=== PATIENT | female | born 1940 | race Caucasian/White ===

== ENCOUNTER → 2018-04-03 12:38 | Outpatient (CLI) | payer MEDICARE, SELFPAY | PROVIDERS: Family Provider Internal Medicine; PCP Internal Medicine; Visit Provider Internal Medicine | DX: R06.09 Other forms of dyspnea (principal); I10 Essential (primary) hypertension; R00.2 Palpitations | CPT/HCPCS: 93306 ==

== ENCOUNTER → 2018-04-21 11:12 | Outpatient (CLI) | payer MEDICARE, SELFPAY ==
[2018-04-21 11:42] VITALS: PULSE 84
== END ==
PROVIDERS: Family Provider Internal Medicine; PCP Internal Medicine; Visit Provider Internal Medicine
DX: R06.02 Shortness of breath (principal)
CPT/HCPCS: 94060; 94640

== ENCOUNTER → 2018-11-07 10:12 | Outpatient (POV) | payer MEDICARE, SELFPAY ==
--- NOTE | 2018-11-07 12:01 | XR_ITS ---
XR chest 2V HISTORY: ITS.REASON: HTN,DYSPNEA ORDERING PHYSICIAN: Julio Mina MD PATIENT AGE: 78 years COMPARISON: 04/14/2015 FINDINGS: The cardiomediastinal silhouette and pulmonary vascularity are within normal limits. The lungs are clear without infiltrates, suspicious nodules, or pleural effusions. Atelectatic or fibrotic changes are present over the anterior clear space inferiorly No acute bony abnormalities. Dense calcification noted in the spleen as seen on a previous CT of 06/16/2015 IMPRESSION: No change with no acute finding
[2018-11-07 12:31] LABS: Basophils % 0.5 % (0.1-2.0); Eosinophils # 0.1 K/mm3 (0.0-0.4); Eosinophils % 0.7 % (0.1-12.0); Hematocrit 40.8 % (37.0-47.0); Hemoglobin 13.3 g/dL (12.2-16.2); Lymphocytes # 1.5 K/mm3 (0.7-4.5); Lymphocytes % 22.5 % (10-50); Mean Corpuscular HGB Conc 32.6 g/dL (31.8-35.4); Mean Corpuscular Hemoglobin 28.1 pg (27.0-31.2); Mean Corpuscular Volume 86.3 fl (81-99); Monocytes # 0.3 K/mm3 (0.1-1.0); Monocytes % 4.1 % (1.7-9.3); Neutrophils # 4.9 K/mm3 (1.8-7.8); Neutrophils % 72.3 % (37.0-80.0); Platelet Count 133 K/mm3 (142-424); Red Blood Count 4.73 M/mm3 (4.20-5.40); Red Cell Distribution Width 13.5 % (11.5-17.5); White Blood Count 6.8 K/mm3 (4.8-10.8)
[2018-11-10 13:14] LABS: Immunoglobulin E, Total <2 IU/mL (0-100)
[2018-11-10 18:04] LABS: M003-IgE Aspergillus fumigatus <0.10 kU/L (Class 0)
== END ==
PROVIDERS: PCP Internal Medicine; Visit Provider Internal Medicine
DX: R06.09 Other forms of dyspnea (principal); I10 Essential (primary) hypertension; R06.2 Wheezing
CPT/HCPCS: 36415; 71046; 82785; 85025; 86003

== ENCOUNTER → 2018-11-16 10:43 | Outpatient (CLI) | payer MEDICARE, SELFPAY ==
--- NOTE | 2018-11-16 10:46 | MM_ITS ---
MM Dig screening mamm BI w/CAD CAD Screening COMPARISON: Digital mammograms with CAD 08/16/2016 and 10/07/2017 INDICATION: There has been a previous lumpectomy left breast for malignancy TECHNIQUE: Standard CC and MLO images were obtained. R2 CAD reviewed. FINDINGS: The left breast is somewhat smaller than the right breast however there is very minimal post lumpectomy scarring noted. There are a few benign-appearing microcalcifications left breast. There is no suspicious lesion in either breast and there are no suspicious microcalcifications. IMPRESSION: Minimal post lumpectomy scarring left breast with no suspicious lesion seen BI-RADS Category: 2 Benign Finding(s) RECOMMENDED FOLLOW-UP: 1YR - 1 YEAR FOLLOW-UP (A letter has been sent to the patient regarding results of the study.)
== END ==
PROVIDERS: PCP Internal Medicine; Visit Provider Internal Medicine
DX: Z12.31 Encounter for screening mammogram for malignant neoplasm of breast (principal)
CPT/HCPCS: 77067

== ENCOUNTER → 2018-11-17 10:34 | Outpatient (CLI) | payer MEDICARE, SELFPAY ==
[2018-11-17 11:26] VITALS: PULSE 71
== END ==
PROVIDERS: PCP Internal Medicine; Visit Provider Internal Medicine
DX: R06.09 Other forms of dyspnea (principal)
CPT/HCPCS: 94060; 94618; 94640; 94726; 94729

== ENCOUNTER 2018-11-29 14:07 | Outpatient (RCR) | payer MEDICARE, SELFPAY | END 2019-01-24 08:56 | disposition home or self-care (01) | LOC: PT 14:07 | PROVIDERS: Visit Provider Internal Medicine | DX: J45.909 Unspecified asthma, uncomplicated (principal) | CPT/HCPCS: G0237; G0238; G0239 ==

== ENCOUNTER → 2019-02-06 14:51 | Outpatient (POV) | payer MEDICARE, SELFPAY | PROVIDERS: Visit Provider Internal Medicine | DX: Z00.00 Encounter for general adult medical examination without abnormal findings (principal) ==

== ENCOUNTER → 2020-02-01 10:05 | Outpatient (CLI) | payer MEDICARE, SELFPAY ==
--- NOTE | 2020-02-01 10:09 | MM_ITS ---
PROCEDURE: MM DIG SCREENING MAMM BI W/CAD Digital Breast Tomosynthesis Included CLINICAL INDICATION: SCREENING There is no personal or family history of breast cancer. There has been a previous lumpectomy left breast for malignancy COMPARISON: [facility] DIG MAMM-SCREEN [facility] from 08/16/2016 [facility] DIG MAMM-SCREEN [facility] W/CAD from 10/07/2017 [facility] MM Dig screening mamm BI w/CAD from 11/16/2018 TECHNIQUE: Standard CC and MLO images and 3D Tomosynthesis was obtained. R2 CAD reviewed. FINDINGS: Moderate diffuse fibroglandular densities are seen in both breasts. The left breast is smaller than the right and there is mild postlumpectomy scarring lower outer quadrant. There is faint arterial calcification right breast and there are couple of benign-appearing microcalcifications left breast. There is a mole marker right breast. IMPRESSION: Stable exam with no new or suspicious lesion seen in either breast BI-RAD Category: 2 Benign Finding(s) FOLLOW-UP: 1YR 1 Year Follow-up (A letter has been sent to the patient regarding results of the study.) Dictated by: Dr. Philip Leone MD 02/01/2020 12:[address] Philip Leone MD in [place] 02/01/2020 12:48
== END ==
PROVIDERS: PCP Internal Medicine; Visit Provider Internal Medicine
DX: Z12.31 Encounter for screening mammogram for malignant neoplasm of breast (principal)
CPT/HCPCS: 77063; 77067

== ENCOUNTER → 2020-11-21 13:30 | Outpatient (CLI) | payer MEDICARE, SELFPAY ==
--- NOTE | 2020-11-21 13:38 | MM_ITS ---
PROCEDURE: MM DIG MAMM DX UNILAT LT CAD Digital Breast Tomosynthesis Included CLINICAL INDICATION: LT BREAST PAIN,H/O LUMPECTOMY COMPARISON: MG MM DIG SCREENING MAMM BI W/CAD from 02/01/2020 TECHNIQUE: Standard CC and MLO images and 3D Tomosynthesis was obtained. R2 CAD reviewed. FINDINGS: Diffuse fibroglandular densities are seen in the breast. I see no interval change in the breast parenchyma from the previous study 02/01/2020. There are few benign-appearing microcalcifications noted. There is faint arterial calcification noted as well. There is only minimal postlumpectomy scarring noted which is stable. Review of benny images reveals no suspicious abnormality though postlumpectomy scarring is better demonstrated. IMPRESSION: Stable fibrofatty parenchyma with no suspicious lesions seen, recommend patient return to normal yearly screening schedule BI-RAD Category: 2 Benign Finding(s) FOLLOW-UP: 6M 6Month Follow-up to return to normal screening schedule (A letter has been sent to the patient regarding results of the study.) Dictated by: Dr. Philip Leone MD 11/30/2020 09:10 Dr. Philip Leone MD in [place] 11/30/2020 09:10
== END ==
PROVIDERS: PCP Internal Medicine; Visit Provider Internal Medicine
DX: N64.4 Mastodynia (principal)
CPT/HCPCS: 77061; 77065; G0279

== ENCOUNTER → 2021-05-06 09:43 | Outpatient (CLI) | payer MEDICARE, SELFPAY ==
--- NOTE | 2021-05-06 | ECG_ITS ---
APPROVED REPORT Exam: Resting ECG HR:92 bpm ECG Measurements Heart Rate 92 AXES QRSd 70 QRS 25 QT 344 T 29 QTc 425 Conclusion Atrial fibrillation Poor R Wave Progression Abnormal ECG Electronically signed by : Aristeo Hoyt, 05/08/2021 16:06:36
== END ==
PROVIDERS: PCP Internal Medicine; Visit Provider Internal Medicine
DX: I49.9 Cardiac arrhythmia, unspecified (principal); I10 Essential (primary) hypertension
CPT/HCPCS: 93005

== ENCOUNTER → 2021-05-25 13:37 | Outpatient (CLI) | payer MEDICARE, SELFPAY ==
--- NOTE | 2021-05-25 13:39 | MM_ITS ---
PROCEDURE: MM DIG SCREENING MAMM BI W/CAD Digital Breast Tomosynthesis Included CLINICAL INDICATION: 6 MON FOLLOW UP to return to screening COMPARISON: MG [facility] DIG MAMM-SCREEN [facility] from 08/16/2016 MG [facility] DIG MAMM-SCREEN [facility] W/CAD from 10/07/2017 MG [facility] MM Dig screening mamm BI w/CAD from 11/16/2018 MG MM DIG SCREENING MAMM BI W/CAD from 02/01/2020 MG MM DIG MAMM DX UNILAT LT CAD from 11/21/2020 TECHNIQUE: Standard CC and MLO images and 3D Tomosynthesis was obtained. R2 CAD reviewed. FINDINGS: There is average fibroglandular tissue. On the right there is an asymmetric density in the the medial aspect of the right breast measuring approximately 5 mm with a small focus of calcification. Of the right breast. Benign-appearing calcifications are present bilaterally. There is some asymmetry in the inferior aspect of the left breast. Left breast is smaller than the right with overall slight increase interstitial densities of the left breast. No malignant appearing mass or malignant-appearing microcalcification. IMPRESSION: Benign findings. No change BI-RAD Category: 2 Benign Finding FOLLOW-UP: 1 YR 1 Year Follow-up (A letter has been sent to the patient regarding results of the study.) Dictated by: Christiano Penny MD 05/29/2021 11:53 Christiano Penny MD in [place] 05/29/2021 11:53
== END ==
PROVIDERS: PCP Internal Medicine; Visit Provider Internal Medicine
DX: Z12.31 Encounter for screening mammogram for malignant neoplasm of breast (principal)
CPT/HCPCS: 77063; 77067

== ENCOUNTER → 2021-10-29 16:30 | Outpatient (CLI) | payer MEDICARE, SELFPAY | PROVIDERS: Visit Provider Obstetrics & Gynecology | DX: R31.9 Hematuria, unspecified (principal) | CPT/HCPCS: 87086 ==

== ENCOUNTER → 2022-03-08 08:15 | Outpatient (CLI) | payer MEDICARE, SELFPAY ==
--- NOTE | 2022-03-08 | CT_ITS ---
FINAL REPORT CLINICAL HISTORY: gross hematuria FINDINGS: Axial CT images of the abdomen and pelvis were obtained without intravenous contrast. Coronal reformatted images were also obtained.This study was performed with techniques to keep radiation doses as low as reasonably achievable (ALARA). Individualized dose reduction techniques using automated exposure control or adjustment of mA and/or kV according to the patient's size were employed. Abdomen: The lung bases are clear. There are probable, less than 3 mm bilateral upper pole renal stones which are best seen on the coronals. There is a 1.5 cm low-attenuation mass in the upper pole of the left kidney. This cannot be completely characterized without contrast. There is no hydronephrosis. The liver and pancreas have an unremarkable, unenhanced appearance. The patient is status post cholecystectomy. There are multiple splenic calcifications. There are moderate vascular calcifications.No adenopathy is seen. No inflammatory process is identified. Pelvis: Images of the pelvis reveal no evidence of ureteral dilation or ureteral stone.No mass or abnormal fluid collection is identified. The appendix is normal. There are scattered descending and sigmoid diverticula. IMPRESSION: 1.5 cm low-attenuation mass upper pole left kidney. Consider renal mass protocol CT. Probable less than 3 mm bilateral upper pole renal stones. No hydronephrosis. No ureteral stone. Reviewed, Interpreted and Dictated by Luca Williamson III, MD Transcribed by David Neville Authenticated by Luca Williamson III, MD on 03/08/2022 09:22:15 AM [facility]
== END ==
PROVIDERS: PCP Internal Medicine; Visit Provider Internal Medicine
DX: R31.0 Gross hematuria (principal)
CPT/HCPCS: 74176

== ENCOUNTER → 2022-03-11 08:33 | Outpatient (CLI) | payer MEDICARE, SELFPAY ==
[2022-03-11 10:29] LABS: Blood Urea Nitrogen 21 mg/dl (7-17); Estimated Glomerular Filt Rate 48 ml/min (>60); GFR (African American) 58 ML/MIN (>60)
== END ==
PROVIDERS: PCP Internal Medicine; Visit Provider Internal Medicine
DX: Z01.812 Encounter for preprocedural laboratory examination (principal); N28.89 Other specified disorders of kidney and ureter
CPT/HCPCS: 36415; 82565; 84520

== ENCOUNTER → 2022-03-12 10:14 | Outpatient (CLI) | payer MEDICARE, SELFPAY ==
--- NOTE | 2022-03-12 10:24 | CT_ITS ---
FINAL REPORT TECHNIQUE: Axial CT images of the abdomen were obtained with IV contrast only. Coronal reformatted images were also obtained. This study was performed with techniques to keep radiation doses as low as reasonably achievable (ALARA). Individualized dose reduction techniques using automated exposure control or adjustment of mA and/or kV according to the patient''s size were employed. CLINICAL HISTORY: RENAL MASS PROTOCOL, poss mass left kidney 10min delay COMPARISON: March 08, 2022 FINDINGS: The lung bases are clear. The liver has an unremarkable appearance, without evidence of mass. There is been cholecystectomy. There is mild biliary duct dilatation likely post cholecystectomy change. The pancreas appears normal. There is a partially peripheral calcified splenic mass measuring 19 mm that is nonspecific and favored to be benign. There is mild renal scarring. There is a 13 mm mass in the upper pole of the left kidney consistent with a simple cyst. There is no evidence of adenopathy. There is mild vascular calcification. On the inferior-most images there is inflammatory change adjacent to the distal descending colon most worrisome for proximal sigmoid diverticulitis. IMPRESSION: Findings most worrisome for proximal sigmoid colon diverticulitis. Simple cyst in the upper pole of the left kidney. No follow-up required. Nonspecific peripherally calcified splenic mass is favored to be benign. Reviewed, Interpreted and Dictated by Luca Williamson III, MD Transcribed by David Neville Authenticated by Luca Williamson III, MD on 03/12/2022 11:54:17 AM [facility]
== END ==
PROVIDERS: PCP Internal Medicine; Visit Provider Internal Medicine
DX: N28.89 Other specified disorders of kidney and ureter (principal)
CPT/HCPCS: 74160; Q9967

== ENCOUNTER 2022-03-22 22:16 | Emergency (ER) | payer MEDICARE, SELFPAY ==
[2022-03-22 22:17] VITALS: BP 193/101; PULSE 107; RESP 20; TEMP 36.7; O2SAT 98; BMI 39.2
--- NOTE | 2022-03-22 22:45 | PC.NURSE ---
Pt is standing up in room after being advised to sit in bed to prevent falling
--- NOTE | 2022-03-22 23:42 | HMH.EDGENADL ---
ED Disposition Clinical Impression: Lumbar radicular pain Disposition: Home, Self-Care Condition on Discharge: Good Instructions: DI for Lumbar Radiculopathy Additional Instructions: call pcp in am Referrals: Aristeo Hoyt MD [Primary Care Provider] - - Critical Care Critical Care Time: No Attestation: On 03/22/22, the high probability of a clinically significant, sudden or life threatening deterioration of the following system(s) required my full and direct attention, intervention and personal management. The time I documented below is in addition to time spent performing reported procedures but includes the following listed in this critical care notation. Medical Decision Making - Medical Records Medical records reviewed: Yes: I reviewed the patient's medical records. - Joel Inquiry Pt receiving controlled substance: No Vital Signs: 03/22/22 22:17 Temperature 98.0 F Temperature Source Oral Pulse Rate [Right] 107 H Respiratory Rate 20 Blood Pressure [Right Arm] 193/101 H Blood Pressure Mean [Right Arm] 131 02 Sat by Pulse Oximetry 98 - Lab Data Lab results reviewed: Yes: I reviewed the patient's lab results. Lab Results 03/22/22 22:25: Urine Color Yellow, Urine Appearance Clear, Urine pH 5.5, Ur Specific [place] 1.020, Urine Protein Negative, Urine Glucose (UA) Negative, Urine Ketones Negative, Urine Blood Negative, Urine Nitrate Negative, Urine Bilirubin Negative, Urine Urobilinogen 0.2, Ur Leukocyte Esterase Negative, Urine RBC 3-5, Urine WBC 3-5, Ur Squamous Epith Cells 3-5, Urine Bacteria 1+, Urine Mucus 1+ 03/23/22 00:00: WBC 6.7, RBC 5.10, Hgb 14.7, Hct 45.0, MCV 88.2, MCH 28.9, MCHC 32.7, RDW 13.8, Plt Count 131 L, MPV 8.8, Neut % (Auto) 75.6, Lymph % (Auto) 16.6, Bond % (Auto) 4.5, Eos % (Auto) 1.3, Baso % (Auto) 2.0, Neut # (Auto) 5.1, Lymph # (Auto) 1.1, Bond # (Auto) 0.3, Eos # (Auto) 0.1, Baso # (Auto) 0.1 03/23/22 00:00: Sodium 139, Potassium 3.9, Chloride 106, Carbon Dioxide 27, Anion Gap 9.9, BUN 17, Creatinine 1.00, Estimated Creat Clear 67, Estimated GFR 53 L, Est GFR ( Amer) 65, Glucose 117 H, Calcium 9.4, Total Bilirubin 0.7, AST 29, ALT 20, Alkaline Phosphatase 113, Total Protein 7.4, Albumin 4.4, Globulin 3.0, Albumin/Globulin Ratio 1.5 03/23/22 00:00: Total Bilirubin 0.8, Direct Bilirubin 0.2, Conjugated Bilirubin 0.0, Indirect Bilirubin 0.6, Unconjugated Bilirubin 0.6, AST 29, ALT 20, Alkaline Phosphatase 112, Total Protein 7.2, Albumin 4.4 03/23/22 00:00: C-Reactive Protein 12.2 H, Lipase 136 03/23/22 00:00: ESR 16 Result diagrams: 03/23/22 00:00 03/23/22 00:00 Orders (Tests/Meds): ED MEDICATIONS Generic Name Dose Route Start Last Admin Trade Name Freq PRN Reason Stop Dose Admin Sodium Chloride 10 ml 03/22/22 23:49 Sodium Chloride 0.9% 10ml Flush Syringe IV 04/21/22 23:48 NEEDED PRN Maintain IV Site Discontinued Medications Generic Name Dose Route Start Last Admin Trade Name Freq PRN Reason Stop Dose Admin Ketorolac Tromethamine 15 mg 03/23/22 00:02 03/23/22 00:03 Ketorolac 30mg/Ml Vial IV 03/23/22 00:03 15 mg ONCE ONE Administration ORDERS Category Date Time Status XR lumbar spine min 4V Stat Exams 03/23/22 00:00 Taken Lactic Acid Stat Lab 03/22/22 23:48 Ordered - Radiology Data #1 Image(s): L-Spine Image Reviewed: Yes I reviewed the patient's radiology image Preliminary Findings: Abnormal, No Fracture Seen Medical Decision Narrative: pt with lumbar radicular pain and stable labs and vital signs - will ask pt to call pcp for follow up General Adult HPI - General Chief complaint: PAIN Stated complaint: rIGHT LEG PAIN Time Seen by Provider: 03/22/22 23:42 Mode of Arrival: Wheelchair Source of Information: Patient, Medical Record Limitations: No Limitations Description of Symptoms (Recalled from ER Triage Doc. by RN): pt states that she had a twinge in her right hip in the fat area that shoots
--- NOTE | 2022-03-23 | XR_ITS ---
PROCEDURE INFORMATION: Exam: XR Lumbosacral Spine Exam date and time: 03/23/2022 12:25 AM Age: 81 years old Clinical indication: Low back pain; Patient HX: Alyce; Additional info: Back pain, radiates to left hip TECHNIQUE: Imaging protocol: XR of the lumbosacral spine. Views: 4 or 5 views. COMPARISON: CT ABDOMEN PELVIS WO CON 03/08/2022 8:23 AM FINDINGS: Bones/joints: Osteopenia. Mildly exaggerated lumbar lordosis. Mild grade 1 degenerative anterolisthesis of L3 on L4. Lumbar vertebral body heights are maintained. No evidence of acute fracture. Mild multilevel degenerative disc disease and disc height loss. Multilevel hypertrophic facet osteoarthropathy, which appears pronounced at L4-L5 and L5-S1. Soft tissues: Unremarkable. Intraperitoneal space: Right upper quadrant cholecystectomy clips. Calcified mass in the left upper quadrant (noted to be in the spleen on prior CT study). IMPRESSION: 1. No acute finding. 2. Degenerative changes.
[2022-03-23 00:01] LABS: Microscopic, Urine URINE MICROSCOPIC (MICROSCOPIC)
[2022-03-23 00:06] LABS: Appearance,Urine CLEAR (Clear); Bilirubin,Urine Negative (Negative); Blood, Urine Negative (Negative); Color,Urine YELLOW (Yellow); Glucose,Urine (UA) Negative (Negative); Ketones,Urine Negative (Negative); Leukocyte Esterase,Urine Negative (Negative); Nitrate,Urine Negative (Negative); PH,Urine 5.5 (5.0-8.5); Protein,Urine Negative (Negative); Urobilinogen,Urine 0.2 EU/dl (0.2)
[2022-03-23 00:16] LABS: Basophils # 0.1 K/mm3 (0-0.2); Eosinophils # 0.1 K/mm3 (0.0-0.4); Eosinophils % 1.3 % (0.1-12.0); Hemoglobin 14.7 g/dL (12.2-16.2); Lymphocytes # 1.1 K/mm3 (0.7-4.5); Lymphocytes % 16.6 % (10-50); Mean Corpuscular HGB Conc 32.7 g/dL (31.8-35.4); Mean Corpuscular Hemoglobin 28.9 pg (27.0-31.2); Mean Corpuscular Volume 88.2 fl (81-99); Mean Platelet Volume 8.8 fl (7.4-10.4); Monocytes # 0.3 K/mm3 (0.1-1.0); Monocytes % 4.5 % (1.7-9.3); Neutrophils # 5.1 K/mm3 (1.8-7.8); Neutrophils % 75.6 % (37.0-80.0); Platelet Count 131 K/mm3 (142-424); Red Cell Distribution Width 13.8 % (11.5-17.5); White Blood Count 6.7 K/mm3 (4.8-10.8)
[2022-03-23 00:17] LABS: Bacteria,Urine 1+ /lpf; Mucus,Urine 1+ /lpf
[2022-03-23 00:21] LABS: Alanine Aminotransferase 20 U/L (12-78); Aspartate Amino Transferase 29 U/L (14-36); Bilirubin,Direct 0.2 mg/dl (0.0-0.4); Bilirubin,Indirect 0.6 mg/dL (0.0-0.9); Bilirubin,Total 0.8 mg/dl (0.2-1.3); Bilirubin,Unconjugated 0.6 mg/dL (0.0-1.1); Chloride 106 mmol/L (98-107); Potassium 3.9 mmoL/L (3.5-5.1); Sodium 139 mmol/L (136-145)
[2022-03-23 00:22] LABS: Alanine Aminotransferase 20 U/L (12-78); Albumin Level 4.4 g/dl (3.5-5.0); Albumin/Globulin Ratio 1.5 (1.1-1.8); Alkaline Phosphatase 112 U/L (38-126); Alkaline Phosphatase 113 U/L (38-126); Anion Gap 9.9 mEq/L (5-15); Aspartate Amino Transferase 29 U/L (14-36); Bilirubin,Total 0.7 mg/dl (0.2-1.3); Blood Urea Nitrogen 17 mg/dl (7-17); Carbon Dioxide 27 mmol/L (22.0-30.0); Creatinine Clearance Estimated 67 mL/min (50-200); Estimated Glomerular Filt Rate 53 ml/min (>60); GFR (African American) 65 ML/MIN (>60); Total Protein,Serum 7.2 g/dl (6.3-8.2); Total Protein,Serum 7.4 g/dl (6.3-8.2)
[2022-03-23 00:23] LABS: Calcium 9.4 mg/dl (8.4-10.2); Glucose 117 mg/dl (74-100)
[2022-03-23 00:30] LABS: Lipase 136 U/L (23-300)
[2022-03-23 00:36] LABS: C-Reactive Protein 12.2 mg/L (0-4)
[2022-03-23 00:51] LABS: Erythrocyte Sedimentation Rate 16 mm/hr (0-30)
[2022-03-23 01:22] VITALS: BP 161/71; PULSE 90; RESP 20; TEMP 36.6; O2SAT 98
== END 2022-03-23 01:41 | disposition home or self-care (01) ==
PROVIDERS: Emergency Provider Emergency Medicine; PCP Internal Medicine
DX: M54.41 Lumbago with sciatica, right side (principal); I10 Essential (primary) hypertension
CPT/HCPCS: 72110; 80053; 80076; 81001; 83690; 85025; 85651; 86140; 96374; 96375; 99284

== ENCOUNTER → 2022-04-01 14:03 | Outpatient (CLI) | payer MEDICARE, SELFPAY ==
--- NOTE | 2022-04-01 14:07 | MR_ITS ---
FINAL REPORT CLINICAL HISTORY: LUMBAGO W/ RT SCIATICA. LOW BACK PACK WITH RIGHT HIP AND LEG PAIN [id number]. NO INJURY OR TRAUMA. FINDINGS: MRI LUMBAR SPINE W/O CONTRAST Multiplanar MR imaging of the lumbar spine was performed without contrast. On the sagittal T2-weighted images, disc degeneration is seen throughout. The vertebral alignment is normal. There is no evidence of fracture. The conus has an unremarkable appearance. T11-12: An annular bulge is present. There are vertebral osteophytes. T12-L1: An annular bulge is present. There are vertebral osteophytes. There is mild bilateral neural foraminal narrowing. L1-2: No significant central canal stenosis or neural foraminal narrowing. L2-3: An annular bulge is present. L3-4: There is an annular disc bulge with facet arthropathy. L4-5: There is an annular disc bulge with facet arthropathy. There is mild left neural foraminal narrowing. L5-S1: There is facet arthropathy. IMPRESSION: Multilevel disc degeneration and spondylosis. Reviewed, Interpreted and Dictated by Luca Williamson III, MD Transcribed by Clover Cheema Authenticated and [facility]
== END ==
PROVIDERS: PCP Internal Medicine; Visit Provider Internal Medicine
DX: M54.41 Lumbago with sciatica, right side (principal)
CPT/HCPCS: 72148; 76376

== ENCOUNTER 2022-04-01 20:19 | Emergency (ER) | payer MEDICARE, SELFPAY ==
[2022-04-01 20:35] VITALS: BP 0/0; PULSE 0; RESP 0; TEMP -17.7; TEMP 0; O2SAT 0
== END 2022-04-01 20:36 | disposition left against medical advice (07) ==
PROVIDERS: Emergency Provider Emergency Medicine; PCP Internal Medicine
DX: Z53.21 Procedure and treatment not carried out due to patient leaving prior to being seen by health care provider (principal)

== ENCOUNTER → 2022-09-06 16:11 | Outpatient (CLI) | payer MEDICARE, SELFPAY ==
--- NOTE | 2022-09-06 16:15 | MM_ITS ---
PROCEDURE INFORMATION: Exam: MG Bilateral Screening 3D Mammography Exam date and time: 09/06/2022 4:13 PM Age: 81 years old Clinical indication: Screening examination. Personal history of left breast cancer, status post left lumpectomy. TECHNIQUE: Imaging protocol: Bilateral Screening tomosynthesis and 2D mammography including computer-aided detection (CAD) when performed. COMPARISON: 1. MG MM DIG SCREENING MAMM BI W/CAD 05/25/2021 2:00 PM 2. MG MM DIG MAMM DX UNILAT LT CAD 11/21/2020 1:46 PM 3. MG MM DIG SCREENING MAMM BI W/CAD 02/01/2020 10:25 AM 4. MG [facility] MM Dig screening mamm BI w/CAD 11/16/2018 10:49 AM FINDINGS: MAMMOGRAPHY: Breast composition: There are scattered areas of fibroglandular density. Mass: None. Architectural distortion: Stable mild architectural distortion in the lower breast with history of lumpectomy. Calcifications: No suspicious calcifications. Asymmetric density: None. Skin thickening: Interval new left skin thickening particularly in the outer lower breast. Axillary adenopathy: None. Other: Interval new left edema, particularly in the upper outer breast. IMPRESSION: Interval new left skin thickening and edema, this is not specific and could reflect obstruction from axillary adenopathy, skin involvement with tumor, tumor and or mastitis. Patient will be recalled for left breast and axillary sonography, which if not revealing, breast MRI may be helpful, as clinically indicated. ASSESSMENT: BI-RADS Category 0: Incomplete- Need Additional Imaging Evaluation and/or Prior Mammograms for Comparison
== END ==
PROVIDERS: PCP Internal Medicine; Visit Provider Family Medicine
DX: Z12.31 Encounter for screening mammogram for malignant neoplasm of breast (principal)
CPT/HCPCS: 77063; 77067

== ENCOUNTER 2022-09-20 13:00 | Outpatient (RCR) | payer MEDICARE, SELFPAY | END 2022-10-19 17:05 | disposition home or self-care (01) | LOC: PT.CARL 13:00 | PROVIDERS: PCP Internal Medicine; Visit Provider Family Medicine | DX: M25.551 Pain in right hip (principal); R53.1 Weakness | CPT/HCPCS: 97110; 97112; 97163; 97164; 97530 ==

== ENCOUNTER → 2022-10-11 13:29 | Outpatient (CLI) | payer MEDICARE, SELFPAY ==
--- NOTE | 2022-10-11 13:32 | US_ITS ---
PROCEDURE INFORMATION: Exam: US Left Breast, Complete Exam date and time: 10/11/2022 2:03 PM Age: 82 years old Clinical indication: Recall on the basis of mammogram from 09/06/2022 for sonographic evaluation of new left skin thickening and edema in this patient s/p left lumpectomy for left breast cancer. TECHNIQUE: Imaging protocol: Complete ultrasound of all four quadrants of the Left breast and the retroareolar regions, including ultrasound of the axilla when performed. COMPARISON: MG MM DIG SCREENING MAMM BI W/CAD 09/06/2022 4:13 PM FINDINGS: Breast: Sonography all 4 quadrants, retroareolar and axilla. Other findings: Diffuse skin thickening and edema which limit evaluation. At the lumpectomy site at 5:00, several tubular type collections with thin sepatations, ranging in size from 1.6 x 0.3 cm to 0.8 x 0.3 cm, which likely reflect post op changes. No suspicious or solid mass demonstrated. In the axilla, several sonographically unremarkable nodes demonstrated. IMPRESSION: 1. Diffuse skin thickening and edema which limit evaluation and likely post lumpectomy changes at the scarring at 5:00. 2. No abnormal axillary adenopathy demonstrated. 3. The findings are not specific (refer to 09/06/2022 report) and suggest breast MRI and if not revealing, may consider CT for additional evaluation of the axilla and or skin punch biopsy. ASSESSMENT: BI-RADS Category 0: Incomplete- Need Additional Imaging Evaluation and/or Prior Mammograms for Comparison
== END ==
PROVIDERS: PCP Internal Medicine; Visit Provider Family Medicine
DX: R92.8 Other abnormal and inconclusive findings on diagnostic imaging of breast (principal)
CPT/HCPCS: 76641

== ENCOUNTER 2022-12-07 14:00 | Outpatient (RCR) | payer MEDICARE, SELFPAY | END 2022-12-09 13:10 | disposition home or self-care (01) | LOC: PT 14:00 | PROVIDERS: PCP Internal Medicine; Visit Provider Family Medicine | DX: R53.1 Weakness (principal) | CPT/HCPCS: 97110; 97112; 97163; 97530 ==

== ENCOUNTER 2024-01-17 14:00 | Outpatient (RCR) | payer MEDICARE, SELFPAY | END 2024-01-25 14:00 | disposition home or self-care (01) | LOC: PT 14:00 | PROVIDERS: PCP Family Medicine; Visit Provider Family Medicine | DX: M54.50 Low back pain, unspecified (principal); R53.1 Weakness | CPT/HCPCS: 97110; 97112; 97163; 97164; 97530 ==

== ENCOUNTER 2024-06-26 13:24 | Outpatient (CLI) | payer MEDICARE, SELFPAY ==
--- NOTE | 2024-06-26 | CA_ITS ---
FINAL REPORT TECHNIQUE: Color Doppler, duplex Doppler and robertson scale sonography of the bilateral neck arterial vasculature was performed. Velocities were measured in the carotid arteries. Stenosis evaluation based on the validated velocity criteria. CLINICAL HISTORY: Afib, Dizziness COMPARISON: None FINDINGS: The peak systolic velocity of the right common carotid artery is 122 cm/s. The peak systolic velocity of the right internal carotid artery is 63 cm/s and end diastolic velocity 17 cm/s. The ICA/CCA ratio is 0.52. A minimal amount of plaque is present. The right external carotid artery is patent. The right vertebral artery is patent with antegrade flow. The peak systolic velocity of the left common carotid artery is 103 cm/s. The peak systolic velocity of the left internal carotid artery is 90 cm/s and end diastolic velocity 21 cm/s. The ICA/CCA ratio is 1.08. A minimal amount of plaque is present. The left external carotid artery is patent.The left vertebral artery is patent with antegrade flow. IMPRESSION: Less than 50% bilateral carotid stenoses. Bilateral patent vertebral arteries with antegrade flow. If indicated, CTA or MRA could further evaluate. Reviewed, Interpreted and Dictated by Kervin Pepe MD Transcribed by Yanna Coello Authenticated and . [facility]
--- NOTE | 2024-06-26 14:13 | CT_ITS ---
FINAL REPORT TECHNIQUE: Axial CT images were performed through the head. Coronal reformatted images were submitted. This study was performed with techniques to keep radiation doses as low as reasonably achievable (ALARA). Individualized dose reduction techniques using automated exposure control or adjustment of mA and/or kV according to the patient's size were employed. CLINICAL HISTORY: DIZZINESS AND FREQUENT FALLS FINDINGS: There is mild atrophy. There is mild decreased attenuation in the deep white matter the ventricles are normal in size. There is no evidence of hemorrhage. There is no mass or edema identified. There is no abnormal extra-axial fluid seen. The sinuses are well aerated. IMPRESSION: No acute intracranial process. Atrophy and chronic changes. Reviewed, Interpreted and Dictated by Kervin Pepe MD Transcribed by Adela Haney Authenticated and [facility]
== END 2024-06-26 23:59 | disposition home or self-care (01) ==
PROVIDERS: PCP Internal Medicine Adolescent Medicine; Visit Provider Nurse Practitioner Family
DX: R42 Dizziness and giddiness (principal); R29.6 Repeated falls; R26.89 Other abnormalities of gait and mobility
CPT/HCPCS: 70450; 93880

== ENCOUNTER 2024-11-13 11:01 | Outpatient (CLI) | payer MEDICARE, SELFPAY ==
--- NOTE | 2024-11-13 11:05 | CT_ITS ---
FINAL REPORT CLINICAL HISTORY: ACUTE B/L LBP W/O SCIATICA COMPARISON: None FINDINGS: CT LUMBAR SPINE TECHNIQUE: Thin section noncontrast axial CT with sagittal reconstructions. This study was performed with techniques to keep radiation doses as low as reasonably achievable, (ALARA). Individualized dose reduction techniques using automated exposure control or adjustment of mA and/or kV according to the patient's size were employed. No fracture is present. Alignment is normal. T12-L1: Minimal annular disc bulge. L1-L2: Mild annular disc bulge without canal stenosis. L2-L3: Mild annular disc bulge. Mild facet arthropathy. Borderline central canal stenosis. L3-L4: Mild annular disc bulge. Advanced facet arthropathy. Moderate central canal stenosis. L4-L5: Mild annular disc bulge asymmetric to the left. Advanced facet arthropathy. Mild central canal stenosis. Mild bilateral neural foraminal narrowing. L5-S1: Mild annular disc bulge. Moderate facet arthropathy. No central canal stenosis. There is an elongated fluid collection in the subcutaneous tissues overlying the spinous process of L1-L3. The fluid collection measures 6.5 x 4.1 x 2.3 cm. This may represent a hematoma or seroma. IMPRESSION: No fracture. Moderate diffuse degenerative changes with multilevel canal stenosis and neural foraminal narrowing most pronounced at L3-4. Reviewed, Interpreted and Dictated by Arun Barroso MD Transcribed by Brittney Fraga Authenticated and [facility]
== END 2024-11-13 23:59 | disposition home or self-care (01) ==
PROVIDERS: PCP Nurse Practitioner Family; Visit Provider Nurse Practitioner Family
DX: M54.50 Low back pain, unspecified (principal)
CPT/HCPCS: 72131

== ENCOUNTER 2024-11-26 10:44 | Outpatient (POV) | payer MEDICARE, SELFPAY ==
--- NOTE | 2024-11-26 11:08 | A.OFFVIS_ITS ---
HPI Data of Consult Patient: new to practice Consult date: 11/26/24 Requesting Physician: Zehra Fajardo APRN Primary Care Provider: Eleni Calderon APRN Consult Narrative Reason for consult: Low back pain, bilateral hip pain History of present illness: Ms. David is a 84 year old female who presents today as a new patient. She is a referral from Dr. Taylor's office. Today she rates her pain a 6 out of 10. Patient states that a lot of her pain originally started around April of last year. She states that she was having issues with being more unsteady on her feet and does states she even had episodes of passing out. Patient states that she ended up tripping over a barstool and caused significant back pain. She does describe it as a constant aching, throbbing sensation that is worse with increased activity and does interfere with her ability perform activities of daily living such as cooking and cleaning. Patient states that she cannot sleep due to the worsening pain. She states that she even has an orthopedic mattress however she tosses and turns due to the worsening pain. Patient has tried oral medications, heat and ice and topicals such as Aspercreme with minimal improvement. Patient did try physical therapy however it made her pain worse and she had to stop it. Patient states that she is currently taking tramadol that does okay. [place] [facility] [place] Patient does state that in the past she has been given IM steroid injections as well as oral steroids. Patient felt like some of the orals may have caused some panic attacks. She states that this was a few years ago and that she has stopped taking these. She states that she does still have some panic attacks from time to time.Patient is prescribed lorazepam from an outside provider and has been given [place] in the past. Her Joel has been reviewed and is appropriate. CC: Zehra Fajardo APRN [facility] Disclaimer: The information contained in this section may have been updated after the patient was seen, as this information can be updated by other users. Medical History (Updated 11/26/24 @ 11:40 by Zehra Fajardo APRN) Arthritis Breast cancer Insomnia Anxiety Depression Afib Hypertension Patient left without being seen Lumbar radicular pain Surgical History History of cholecystectomy History of ear surgery H/O lumpectomy History of surgery on lower extremity Family History Father Asthma Social History Smoking Status: Never smoker alcohol intake: never substance use type: denies use current occupational status: retired Travel in the last 8 weeks: None household members: spouse and none housing: house Review of Systems Review of Systems Review of systems:: pertinent systems reviewed and negative unless documented below Review of systems (narrative): Review of Systems: General: No recent weight changes, no fever, no sleep disturbances Respiratory: No cough, no shortness of air, no recurring pulmonary infections Cardiovascular/peripheral vascular: No chest pain, no palpitations, no edema, no shortness of breath Gastrointestinal: No new onset incontinence, normal bowel movements reported Genitourinary: No new onset incontinence Musculoskeletal: Low back pain, bilateral hip pain Psychiatric: [Normal mood/affect] Neurological: [Denies weakness in extremities], [denies balance issues] Meds Home Medications and Allergies Home Medications ?Medication ?Instructions ?Recorded ?Confirmed ?Type lisinopril 40 mg tablet 40 mg PO DAILY 10/29/21 11/14/24 History rivaroxaban 15 mg tablet (Xarelto) 15 mg PO DAILY 10/29/21 11/14/24 History diltiazem HCl 120 mg 120 mg PO DAILY 02/08/23 11/14/24 History capsule,extended release 24 hr escitalopram oxalate 10 mg tablet 10 mg PO DAILY depression 02/08/23 11/14/24 History lorazepam 0.5 mg tablet 0.5 mg PO TID 02/08/23 11/14/24 History carbidopa ER 25 mg-levodopa 100 mg 1 tab PO TID #90 tabs 11/14/24 11/14/24 Rx tablet,extended release trazodone 50 mg tablet 50 mg PO ONCE 11/14/24 11/14/24 History New Prescriptions to Start Prescriptions: Allergies Allergy/AdvReac Type Severity Reaction Status Date / Time prednisone AdvReac Confusion Verified 11/14/24 09:48 Objective Narrative: Physical Exam: General: Alert and oriented x3, no acute distress, pleasant and cooperative Lungs: Respirations even and unlabored, symmetrical chest expansion Eyes: PERRL Musculoskeletal: Flexion and extension of lumbar [spine] somewhat guarded s econdary to pain, [antalgic gait noted] point tenderness along bilateral SIs with positive bilateral Abbie's, Dalila's, Gaenslen's, compression and distraction exam Neurological: Speech clear, no gross sensory deficit Additional findings Additional findings: FINDINGS: CT LUMBAR SPINE TECHNIQUE: Thin section noncontrast axial CT with sagittal reconstructions. This study was performed with techniques to keep radiation doses as low as reasonably achievable, (ALARA). Individualized dose reduction techniques using automated exposure control or adjustment of mA and/or kV according to the patient's size were employed. No fracture is present. Alignment is normal. T12-L1: Minimal annular disc bulge. L1-L2: Mild annular disc bulge without canal stenosis. L2-L3: Mild annular disc bulge. Mild facet arthropathy. Borderline central canal stenosis. L3-L4: Mild annular disc bulge. Advanced facet arthropathy. Moderate central canal stenosis. L4-L5: Mild annular disc bulge asymmetric to the left. Advanced facet arthropathy. Mild central canal stenosis. Mild bilateral neural foraminal narrowing. L5-S1: Mild annular disc bulge. Moderate facet arthropathy. No central canal stenosis. There is an elongated fluid collection in the subcutaneous tissues overlying the spinous process of L1-L3. The fluid collection measures 6.5 x 4.1 x 2.3 cm. This may represent a hematoma or seroma. IMPRESSION: No fracture. Moderate diffuse degenerative changes with multilevel canal stenosis and neural foraminal narrowing most pronounced at L3-4. Reviewed, Interpreted and Dictated by Arun Barroso MD Transcribed by Brittney Fraga Authenticated and [facility] Assessment and Plan *Assessment and plan (1) Lumbar radicular pain: Status: Acute Category: Medical Code(s): M54.16 - Radiculopathy, lumbar region (2) Bilateral hip pain: Status: Acute Category: Medical Code(s): M25.551 - Pain in right hip; M25.552 - Pain in left hip (3) Bilateral sacroiliitis: Status: Acute Category: Medical Code(s): M46.1 - Sacroiliitis, not elsewhere classified Plan Patient is experiencing worsening pain along the low back and bilateral hips. They did have limited range of motion of the lumbar spine along with point tenderness along bilateral SI joints and a positive bilateral Abbie's, Dalila's, Gaenslen's, compression and distraction exam. I did discuss with the patient that I do believe they would benefit from bilateral SI injections. Risk and benefits were discussed with the patient and they would like to proceed forward with this option. Patient has tried and failed conservative therapy including physical therapy and continued at home stretching exercise for longer than 12 weeks that was physician guided. Patient will be scheduled for bilateral SI in [facility] under fluoroscopy. Patient has been instructed to contact the clinic with any concerns before the next appointment. Dr. Dodson has reviewed this note and agrees with this plan of care. This note was dictated using voice recognition software and make contain errors or omissions. All injections are used with Lidocaine or Bupivacaine and Depo Medrol. Patient has been instructed to contact the clinic with any concerns before the next appointment. Dr. Dodson has reviewed this note and agrees with this plan of care. This note was dictated using voice recognition software and make contain errors or omissions. All injections are used with Lidocaine, Bupivacaine and Depo Medrol. Occasionally urine drug screen is needed to verify patient's compliance with our office pain contract. This is ordered based off specific treatments related to chronic pain with the potential to abuse certain medications.
[2024-11-26 11:50] VITALS: BP 135/78; PULSE 97; RESP 18; O2SAT 93; BMI 37.8
== END 2024-11-26 23:59 | disposition home or self-care (01) ==
LOC: SC.PAIN 10:45
PROVIDERS: PCP Nurse Practitioner Family; Visit Provider Nurse Practitioner Family
DX: M54.16 Radiculopathy, lumbar region (principal); M25.551 Pain in right hip; M25.552 Pain in left hip; M46.1 Sacroiliitis, not elsewhere classified; Z73.89 Other problems related to life management difficulty
CPT/HCPCS: 99202; G0463

== ENCOUNTER → 2025-01-08 14:01 | Day surgery (SDC) | payer MEDICARE, SELFPAY ==
[2025-01-08 14:10] VITALS: BP 122/65; PULSE 89; RESP 16; TEMP 36.6; O2SAT 95; BMI 39.0
--- NOTE | 2025-01-08 15:15 | PC.NURSE ---
1415- Discussing pts listed allergy of prednisone. Pt reports when she has had shots of prednisone in the past she has gotten confused, burning sensation all over her body. Pt reports states she has had issues with oral steroids also. Notified provider EDUARD French of this. Pat in room to speak with pt. Upon speaking with patient I called [facility] to confirm medications that pt is taking. Staff confirmed pt is taking a muscle relaxer as well as has tramadol ordered for pain. Pat notified pt we can not give her the injection as ordered r/t her previous reaction to steroids, pt verbalized understanding. Compounded cream order offered for pt to try for pain relief, pt agreeble to this. Follow up appt given to pt, pt son present and is understanding of the above and agreeable to change in plan of care.
== END ==
LOC: SC.PAINP 14:01 → SC.PAIN 14:33
PROVIDERS: PCP Nurse Practitioner Family; Visit Provider Nurse Anesthetist, Certified Registered
DX: M46.1 Sacroiliitis, not elsewhere classified (principal); M54.16 Radiculopathy, lumbar region; M25.551 Pain in right hip; M25.552 Pain in left hip; Z53.8 Procedure and treatment not carried out for other reasons
CPT/HCPCS: 99212; G0463

== ENCOUNTER 2025-02-06 15:05 | Outpatient (POV) | payer MEDICARE, SELFPAY ==
[2025-02-06 15:22] VITALS: BP 160/83; PULSE 105; RESP 18; O2SAT 95; BMI 36.6
--- NOTE | 2025-02-06 15:32 | EXP.PAIN.SOA ---
[facility] Disclaimer: The information contained in this section may have been updated after the patient was seen, as this information can be updated by other users. Medical History Arthritis Breast cancer Insomnia Anxiety Depression Afib Hypertension Patient left without being seen Lumbar radicular pain Surgical History History of cholecystectomy History of ear surgery H/O lumpectomy History of surgery on lower extremity Family History Father Asthma Social History Smoking Status: Never smoker alcohol intake: never substance use type: denies use current occupational status: retired Travel in the last 8 weeks: None household members: spouse and none housing: house Have you lived/traveled outside US in past 30 days?: No Contact w/someone who lives/traveled outside US past 30 days?: No Exposure to someone with infectious disease in past 14 days?: No Do you have a fever (greater than 100.4 F or 38 C)?: No Have you tested positive for COVID-19: No Exposed to someone with COVID-19 in past 14 days?: No Do you have a sore throat?: No Do you have a cough?: No Do you have any weakness?: No Do you have any diarrhea?: No Are you experiencing any unusual bleeding?: No Do you have any muscle aches/pain?: No Do you have any abdominal pain?: No Are you experiencing loss of taste or smell?: No PM Subjective & Objective Subjective Subjective:: Patient is a pleasant 84-year-old female who presents today for follow-up. Today she rates her pain a 6 out of 10. She denies any new trauma or injury from her last visit. Patient does state that she ended up coming in for the injections however when she realized that the steroids were in its that she did not want to take the chance due to have previous sensations like she was going to and anxiety attacks. Patient does state that the compounded cream we did order her is helping. She denies any other changes. Her Joel has been reviewed and is appropriate. Review of Systems: General: No recent weight changes, no fever, no sleep disturbances Respiratory: No cough, no shortness of air, no recurring pulmonary infections Cardiovascular/peripheral vascular: No chest pain, no palpitations, no edema, no shortness of breath Gastrointestinal: No new onset incontinence, normal bowel movements reported Genitourinary: No new onset incontinence Musculoskeletal: Low back pain Psychiatric: [Normal mood/affect] Neurological: [Denies weakness in extremities], [denies balance issues] Pain at rest (0-10 scale): 6 Objective Objective:: Physical Exam: General: Alert and oriented x3, no acute distress, pleasant and cooperative Lungs: Respirations even and unlabored, symmetrical chest expansion Eyes: PERRL Musculoskeletal: Flexion and extension of lumbar [spine] somewhat guarded secondary to pain, [antalgic gait noted] Neurological: Speech clear, no gross sensory deficit Has patient had previous pain injection?: No Conservative treatment options previously tried: Home exercise plan Length of treatment: Longer than 12 weeks Meds Home Medications and Allergies Home Medications ?Medication ?Instructions ?Recorded ?Confirmed ?Type lisinopril 40 mg tablet 40 mg PO DAILY 10/29/21 02/06/25 History rivaroxaban 15 mg tablet (Xarelto) 15 mg PO DAILY 10/29/21 02/06/25 History diltiazem HCl 120 mg 120 mg PO DAILY 02/08/23 02/06/25 History capsule,extended release 24 hr escitalopram oxalate 10 mg tablet 10 mg PO DAILY depression 02/08/23 02/06/25 History lorazepam 0.5 mg tablet 0.5 mg PO TID 02/08/23 02/06/25 History carbidopa ER 25 mg-levodopa 100 mg 1 tab PO TID #90 tabs 11/14/24 02/06/25 Rx tablet,extended release trazodone 50 mg tablet 50 mg PO ONCE 11/14/24 02/06/25 History New Prescriptions to Start Prescriptions: Allergies Allergy/AdvReac Type Severity Reaction Status Date / Time prednisone AdvReac Confusion Verified 02/06/25 08:41 Assessment and Plan *Assessment and plan (1) Bilateral sacroiliitis: Status: Acute Category: Medical Code(s): M46.1 - Sacroiliitis, not elsewhere classified Plan I did discuss with the patient due to her fear that it would cause additional anxiety attacks with the steroids that it would not necessarily be beneficial to just do the numbing medication as this would only last a couple of hours. I did discuss with the patient that we can always try certain type muscle relaxers to see if that helps with the pain on a day-to-day basis. Patient does state that she already takes tizanidine 4 mg however does not necessarily think it does a big difference on her overall pain. I did discuss with the patient that it may be beneficial to try a different type medication such as baclofen 10 mg at bedtime. Patient would like to talk to her primary care regarding this. Patient is already on tramadol at the [facility]. Patient was counseled that we will let her call our office for her next follow-up appointment. Patient agrees with this plan of care as well as does her son who was present for this appointment. Patient has been instructed to contact the clinic with any concerns before the next appointment. Dr. Dodson has reviewed this note and agrees with this plan of care. This note was dictated using voice recognition software and make contain errors or omissions. All injections are used with Lidocaine, Bupivacaine and Depo Medrol. Occasionally urine drug screen is needed to verify patient's compliance with our office pain contract. This is ordered based off specific treatments related to chronic pain with the potential to abuse certain medications.
== END 2025-02-06 23:59 | disposition home or self-care (01) ==
LOC: SC.PAIN 15:06
PROVIDERS: PCP Internal Medicine Adolescent Medicine; Visit Provider Nurse Practitioner Family
DX: M46.1 Sacroiliitis, not elsewhere classified (principal)
CPT/HCPCS: 99212; G0463

== ENCOUNTER 2025-05-27 12:48 | Outpatient (CLI) | payer MEDICARE, SELFPAY ==
--- OUTSIDE RECORDS SUMMARY | 2025-05-06 06:23 | XMS_ITS | Continuity of Care Document ---
Author Organization [address] [place] [address] Address [address] [facility] [address] [place] [address] Phone Care Team Providers Care Manager Willow Name Role Phone Eve JOHNSON, Goldy Unavailable Unavailable Allergies, Adverse Reactions, Alerts Substance Reaction Status Criticality lansoprazole Active No Information Medications Medication Instructions Dosage Effective Dates (start - stop) Status Comments lorazepam 0.5 mg tablet - Ac tive Xarelto 15 mg tablet - Activ e ropinirole 0.25 mg tablet - Active lisinopril 20 mg tablet - Ac tive trazodone 50 mg tablet - Act marialuisa fluconazole 150 mg tablet - Active amitriptyline 10 mg tablet - Active diltiazem CD 120 mg capsule,extended release 24 hr - Active escitalopram 10 mg tablet - Active lisinopril 40 mg tablet - Ac tive clobetasol 0.05 % topical cream - Active nitrofurantoin monohydrate/macrocrystals 100 mg capsule - Active hydrocodone 5 mg-acetaminophen 325 mg tablet - Active Procedures Procedure Date Trim dystrophic nail(s) in length, any n umber Debride mycotic, thick nails 1-5 2024 Trim nail(s) DEBRIDE NAIL 1-5 SBSQ NF CARE LOW MDM 20 Advance Directives Directive Yes / No Effective Date File Name No Information Encounters Encounter Description Practice Location Reason(s) For Visit Diagnoses Date Provider Providers Copied on Encounter [address] [place] [address], [address] [facility] [address], [place], [place], [id number], tel:[phone] [facility] No Information [address] [place], [place]. [address] [place] [address], [address] [facility], [place], [place], [id number], tel:[phone] [facility] Nail dystrophyOnycho gryphosisOther specified peripheral vascular diseases 5 [place], [place]. [facility] CARE LOW [facility] [address] [place] [address], [id number] [place] [address] [address], [place], [place], [id number], tel:[phone] [facility] Nail dystrophyOnycho gryphosisOther specified peripheral vascular diseases [address] [place], [place]. [address] [place] [address], [address] [facility], [place], [place], [id number], tel:[phone] [facility] No Information [address]. [address] [facility], [address], [place], [address], [place]. Family History Family Member Type Diagnosis Age At Onset No Information Payers Payer name Insurance type Covered republican ID Authoriza titoribio(s) [employer] Medicare CI [id number] Social History Type Description Quantity Date Captured Comments Sex Female Smoking Status No Information Chief Complaint And Reason For Visit No Information Reason For Referral Reason For Referral No Information History Of Present Illness Encounter Date Complaint History Of Prese nt Illness No Information Functional Status Date Functional Assessmen t No Information Instructions Date Instruction Additional Infor mation All documented dystr ophic nails were reduced in length as needed to prevent pain and other symptoms. Related to Nail dystrophy All documented thick ened nails were debrided using a rotary tool and nail nipper. Related to Onychogryphosis Discussed using comp ression stockings to assist in localize swelling and venous return, and the feather maker benefits of using compression stockings. Reinforced the importance of proper adherence to using the christy hose, and compression stockings. Will continue to monitor. Related to Other specified peripheral vascular diseases All documented dystr ophic nails were reduced in length as needed to prevent pain and other symptoms. Related to Nail dystrophy All documented thick ened nails were debrided using a rotary tool and nail nipper. 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
--- OUTSIDE RECORDS SUMMARY | 2025-05-27 12:54 | XMS_ITS | Clinical Summary ---
Author Organization [facility] Facility Address [address] [place] [address] Care Team Providers Care Sales Representative Adding Machines Name Role Phone Unavailable Primary Care Provider Unavailabl e Social History Tobacco Use Types Packs/Day Years Used Date Smoking Tobacco: Never Assessed Comments Unknown Sex and Gender Information Value Date Recorded Sex Assigned at Not on file Legal Sex Female 3:23 PM EDT Gender Identity Not on file Sexual Orientation Not on file Plan of Treatment Health Maintenance Due Date Last Done Comments Pneumococcal Vaccine: 50+ Ye ars (1 of 1 - PCV) 1991 Influenza Vaccine (#1) 2025 Hepatitis B Vaccine Aged Out No longe r eligible based on patient's age to complete this topic Insurance Medicare
--- OUTSIDE RECORDS SUMMARY | 2025-05-27 12:55 | XMS_ITS | Clinical Summary ---
Author Organization [facility] Address [address] [place] [address] Care Team Providers Care Survival Equipment Repairer Name Role Phone Aristeo Hoyt MD Primary Care Provider [phone] Allergies Active Allergy Reactions Criticality Noted Date Comments Cortisone Hallucinations 04/16/2022 Prednisone Hallucinations 04/16/2022 Medications lisinopril (PRINIVIL,ZESTRIL ) 40 MG tabletIndications :Essential hypertension TAKE 1 TABLET BY MOUTH DAILY. 90 tablet 3 08/26/2020 Active Xarelto 15 MG tablet Daily. 02/02/2022 Active dilTIAZem CD (CARDIZEM CD) 120 MG 24 hr capsule Daily. 01/24/2023 Ac tive escitalopram (LEXAPRO) 10 MG tablet 1 tablet Daily. 02/07/2023 Active LORazepam (ATIVAN) 0.5 MG tablet 1 tablet 2 (Two) Times a Day. 02/24/2023 Active rOPINIRole (REQUIP) 0.25 MG tablet 1 tablet. 07/10/2024 Active traZODone (DESYREL) 50 MG tablet 1 tablet. 07/04/2024 Active Active Problems Problem Noted Date Diagnosed Date Shortness of breath 08/22/2018 Essential hypertension 08/22/2018 Lower extremity edema 08/22/2018 Encounters Date Type Department Care Team Description 05/10/2025 Telephone [facility] [address] [place] [address] [address] [place] [address] Julio Costello MD Appointment from Last 3 Months Family History Medical History Relation Name Comments Stroke Father No Known Problems Mother Relation Name Status Comments Father Mother Social History Tobacco Use Types Packs/Day Years Used Date Smoking Tobacco: Never Passive Smoke Exposure: Never Smokeless Tobacco: Never Tobacco Cessation:Counseling Given: Not Answered Alcohol Use Standard Drinks/Week Comments No 0 (1 standard drink = 0.6 oz pur e alcohol) Abuse Screen Answer Date Recorded Unsafe at Home or Work/School Not on file Feels Threatened by Someone? Not on file 07/2023 Does Anyone Keep You from Co ntacting Others or Doint Things Outside the Home? Not on file 08/08/2023 Physical Sign of Abuse Present Not on file 1 Housing Stability Answer Date Recorded Current Living Arrangements Not on file 07/2023 Potentially Unsafe Housing Conditions Not on awais e 08/08/2023 Family and Community Support Answer Lars e Recorded Help with Day-to-Day Activities Not on file 08/08/2023 Lonely or Isolated Not on file 08/08/2023 Employment Answer Date Recorded Do you want help finding or keeping work or a raul b? Not on file 08/08/2023 Disabilities Answer Date Recorded Concentrating, Remembering, or Making Decisions Difficulty Not on file 08/08/2023 Doing Errands Independently Difficulty Not on fi le 08/08/2023 Education Answer Date Recorded Help with school or training? Not on file Preferred Language Not on file 08/08/2023 Comments No Sex and Gender Information Value Date Recorded Sex Assigned at Not on file Legal Sex Female 11:31 AM EDT Gender Identity Not on file Sexual Orientation Not on file Last Filed Vital Signs Vital Sign Reading Time Taken Comments Blood Pressure 128/72 07/26/2024 11:46 AM EDT Pulse 92 07/26/2024 11:46 AM EDT Temperature - - Respiratory Rate - - Oxygen Saturation 97% 07/26/2024 11:46 AM EDT Inhaled Oxygen Concentration - - Weight 92.5 kg (204 lb) 07/26/2024 11:46 AM EDT Height 154.9 cm (5' 1 ) 07/26/2024 11:46 AM EDT Body Mass Index 38.55 07/26/2024 11:46 AM EDT Plan of Treatment Upcoming Encounters Date Type Department Care Team (Late st Contact Info) Description 07/25/2025 2:45 PM EDT Office Visit [facility] [address] [place] [address] [address] [place] [address] Julio Costello MD [address] [facility] [address] [place] [address] Health Maintenance Due Date Last Done Comments DXA SCAN 1940 Pneumococcal Vaccine 50+ (1 of 2 - PCV) 1960 TDAP/TD VACCINES (1 - Tdap) 1960 ZOSTER VACCINE (1 of 2) 1991 RSV Vaccine - Adults (1 - 1- dose 75+ series) 2016 ANNUAL WELLNESS VISIT 08/22/2018 COVID-19 Vaccine (5 - 2023-2 5 season) 2024 02/09/2022, 07/16/2021, 12/03/2020, Additional history exists INFLUENZA VACCINE 07/31/2025 08/15/2023, , 09/03/2018, Additional history exists Insurance [facility] Medicare [employer] PPO Care Teams Survival Equipment Repairer Relationship Specialty Start Date End Date Aristeo Hoyt MD [address] [place] [id number] PCP - General Internal Medicine 05/30/18
--- OUTSIDE RECORDS SUMMARY | 2025-05-27 12:55 | XMS_ITS | Encounter Summary ---
Author Organization [facility] Address [address] [place] [address] Care Team Providers Care Pre Billing Clinician Name Role Phone Parth Taylor MD Primary Care Provider [phone] Encounter Details Date Type Department Care Team (Late st Contact Info) Description 01/14/2011 Orders Only External Location [address] [place] [address] Sesar Lawton MD [address] [facility] [address] [place] [address] Social History Tobacco Use Types Packs/Day Years Used Date Smoking Tobacco: Never Assessed Comments Unknown Sex and Gender Information Value Date Recorded Sex Assigned at Not on file Legal Sex Female 8:36 PM EDT Gender Identity Not on file Sexual Orientation Not on file documented as of this encounter Plan of Treatment Not on file documented as of this encounter Procedures Procedure Name Priority Date/Time Associated Diagnosis Comments MAMMOGRAPHY OUTSIDE IMAGES UPLOAD 01/14/2011 8:36 AM EDT documented in this encounter Results * Mammography Outside Images Upload (01/14/2011 8:36 AM EDT) Anatomical Region Laterality Modality Mammography 01/14/2011 8:36 AM EDT us Sesar Lawton MD IMG BI PROCEDURES Final Result documented in this encounter Visit Diagnoses Not on filedocumented in this encounter Care Teams Pre Billing Clinician Relationship Specialty Start Date End Date Parth Taylor MD [address] [place] [address] PCP - General Internal Medicine 03/14/25 documented as of this encounter
--- OUTSIDE RECORDS SUMMARY | 2025-05-27 12:55 | XMS_ITS ---
Author Organization [facility] Care Team Providers Care Health Plan Advisor Name Role Phone Campbell Browning Unavailable Unavailable Allergies and adverse reactions Code CodeSystem Substance Reaction Severity StartDate Concern Status 8640 RXNORM predniSONE Unknown 04/16/2022 active 2878 RXNORM Cortisone Unknown 04/16/2022 active Care Team Name Role Address Phone Organization Dates Campbell Browning PCP [address] [place] [address], [facility] [place] States (Office): : [facility] 04/16/2022 - 06/16/2022 Goals Section Goals Description Status Target Date Nursing will recognize signs/symptoms of discomf ort promptly. Active 05/25/2023 Psychoactive Medications will not result in adve rse effects. Active 05/25/2023 Resident psychosocial functi oning will not impair ability to interact with others. Active 05/25/2023 Resident will attend Activit ies of Choice throughout the next 90 days. Active 05/25/2023 Resident will be free from s igns and symptoms of abnormal bleeding through next review date. Active 05/25/2023 Resident will have adequate bowel elimination AEB: r egular bowel movements at least every 3rd day Active 05/25/20 Resident will maintain adequ ate nutrition AEB having a stable weight. Active 05/25/2023 Resident will not exhibit an y s/s of physical decline related to the room change through next review. Active 05/25/2023 Resident will not experience any injuries related to a fall throughout the next review period. Active 05/25/2023 Resident's Skin will remain intact through the n ext review. Active 05/25/2023 Residents Advanced Directive will be honored. Ac tive 05/25/2023 The resident will be free fr om s/sx of complications of cardiac problems through the review date. Active 05/25/2023 The resident will be free of signs and symptoms of COVID-19 through next review. Active 05/25/2023 Will achieve/maintain maximum functional mobilit y. Active 05/25/2023 Will have needs met by assistance of staff as ne eded. Active 05/25/2023 Immunizations Immunization Status Vaccine Details Vaccine Code CodeSystem Date Notes TB 2 Step Mantoux Skin Test completed tuberculin skin test; unspecified formulation lotNumber: [id number] Given 0.1 ml Left Forearm intradermally Step 2 of Multi-step with next step required 98 CVX created date: 2 consent date: 2 administe red date: 2 TB 2 Step Mantoux Skin Test completed tuberculin skin test; unspecified formulation lotNumber: [id number] expiry: 09/10/2023 Mfg: apsilol Given 0.1 ml Left Forearm intradermally Step 1 of Multi-step with next step required 98 CVX created date: 2 consent date: 2 administe red date: 2 Educated by on 04/16/2022 SARS-COV-2 (COVID-19) completed SARS-COV-2 (COVID-19) vaccine, mRNA, spike protein, LNP, preservative free, 100 mcg/0.5mL dose or 50 mcg/0.25mL dose Step 2 of Multi-step with next step required 207 CVX created date: 2 administe red date: 2 [facility] SARS-COV-2 (COVID-19) completed SARS-COV-2 (COVID-19) vaccine, mRNA, spike protein, LNP, preservative free, 50 mcg/0.5 mL dose Step 1 of Multi-step with next step required 221 CVX created date: 2 administe red date: 1 [facility] SARS-COV-2 (COVID-19) completed SARS-COV-2 (COVID-19) vaccine, mRNA, spike protein, LNP, preservative free, 100 mcg/0.5mL dose or 50 mcg/0.25mL dose Step 2 of Multi-step with next step required 207 CVX created date: 2 administe red date: 1 [facility] SARS-COV-2 (COVID-19) completed SARS-COV-2 (COVID-19) vaccine, mRNA, spike protein, LNP, preservative free, 100 mcg/0.5mL dose or 50 mcg/0.25mL dose Step 1 of Multi-step with next step required 207 CVX created date: 2 administe red date: 1 [facility] Mental Status Section Date Assessment Total Score Description 06/16/2022 BIMS 10 moderate cognit marialuisa impairment CAM 0 No delirium ind icated PHQ-9 19 moderately lenin re depression 05/25/2022 BIMS 10 moderate cognit marialuisa impairment CAM 0 No delirium ind icated PHQ-9 19 moderately lenin re depression Problems Problem # Description Date of onset Resolved Date Code CodeSystem Concern Status 1 LOW BACK PAIN, UNSPECIFIED 04/19/[address] active 2 ANXIETY DISORDER, UNSPECIFIED 04/16/[address] active 3 COGNITIVE COMMUNICATION DEFICIT 04/16/[address] active 4 DEPRESSION, UNSPECIFIED 04/16/[address] active 5 ESSENTIAL (PRIMARY) HYPERTENSION 04/16/[address] active 6 INSOMNIA, UNSPECIFIED 04/16/[address] active 7 MUSCLE WASTING AND ATROPHY, NOT ELSEWHERE CLASSIFIED, UNSPECIFIED SITE 04/16/[address] active 8 OTHER LACK OF COORDINATION 04/16/[address] active 9 PAIN IN RIGHT HIP 04/16/[address] active 10 UNSPECIFIED ATRIAL FIBRILLATION 04/16/[address] active 11 UNSPECIFIED MOOD [AFFECTIVE] DISORDER 04/16/[address] active 12 UNSTEADINESS ON FEET 04/16/[address] active 13 WEAKNESS 04/16/[address] active Reason for Referral No Reasons for Referral Entered Social History Social History Observation Description Start Date End Date Code Code System Current Smoking Status Tobacco smoking consumption unknown 981123067 SNOMED CT Sex Assigned At Female 1940 27022-1 [facility] Gender Identity Vital Signs Code Code System Vitals Name Values and Units Timing Information 04731-2 [facility] Pain Level Value=0.0 06/16/2022 8462-4 [facility] Blood Pressure-Diastolic Value=74 Un its=mmHg 06/14/2022 8480-6 [facility] Blood Pressure-Systolic Cbwhp=763 Un its=mmHg 06/14/2022 9279-1 [facility] Respiratory Rate Value=16.0 Units=/m in 06/12/2022 8310-5 [facility] Body Temperature Value=97.6 Units= F 06/12/2022 8867-4 [facility] Heart rate Value=80.0 Units=/min 39723-9 [facility] O2 % BldC Oximetry Value=95.0 Units= % 06/12/2022 56133-1 [facility] Weight Iqtww=651.2 Units=Lbs 05/2022 8302-2 [facility] Height Value=61.0 Units=Inches 04/16/2022
--- OUTSIDE RECORDS SUMMARY | 2025-05-27 12:55 | XMS_ITS | Encounter Summary ---
Author Organization [facility] Address [address] [place] [address] Care Team Providers Care Plywood Scarfer Tender Name Role Phone Aristeo Hoyt MD Primary Care Provider [phone] Reason for Visit * Reason Onset Date Comments Appointment 05/10/2025 Encounter Details Date Type Department Care Team (Late st Contact Info) Description 05/10/2025 Telephone [facility] [address] [facility] [address] [place], [place] [address] Julio Costello MD [address] [facility] [address] [place] [address] Appointment Social History Tobacco Use Types Packs/Day Years Used Date Smoking Tobacco: Never Passive Smoke Exposure: Never Smokeless Tobacco: Never Alcohol Use Standard Drinks/Week Comments No 0 [...] on file documented as of this encounter Miscellaneous Notes * Telephone Encounter - Robin Boone RegSched Rep - 05/10/2025 2:17 PM EDT Caller: INDIRA PARRISH Relationship to patient: Child Best call back number: [phone] Chief complaint: NEEDS TO HAVE APPTS WITH ([id number]) AT THE SAME DAY IN THE AFTERNOON Type of visit: FU Requested date: NAEL Additional notes: documented in this encounter Plan of Treatment Upcoming Encounters Date Type Department Care Team (Late st Contact Info) Description 07/25/2025 2:45 PM EDT Office Visit [facility] [address] [place] [address] [address] [place] [address] Julio Costello MD [address] [facility] [address] [place] [address] documented as of this encounter Visit Diagnoses Not on filedocumented in this encounter Care Teams Plywood Scarfer Tender Relationship Specialty Start Date End Date Aristeo Hoyt MD [address] [facility] [address] [place] [address] PCP - General Internal Medicine 05/30/18 documented as of this encounter
--- OUTSIDE RECORDS SUMMARY | 2025-05-27 12:55 | XMS_ITS | Encounter Summary ---
Author Organization [facility] Address [address] [place] [address] Care Team Providers Care Key Account Representative Name Role Phone Parth Taylor MD Primary Care Provider [phone] Encounter Details Date Type Department Care Team (Late st Contact Info) Description 08/16/2016 Orders Only External Location [address] [place] [address] Provider, External Social History Tobacco Use Types Packs/Day Years [...] Associated Diagnosis Comments MAMMOGRAPHY OUTSIDE IMAGES UPLOAD 08/16/2016 3:58 PM EDT documented in this encounter Results * Mammography Outside Images Upload (08/16/2016 3:58 PM EDT) Anatomical Region Laterality Modality Mammography 08/16/2016 3:58 PM EDT us External Provider IMG BI PROCEDURES Final Result documented in this encounter Visit Diagnoses Not on filedocumented in this encounter Care Teams Key Account Representative Relationship Specialty Start Date End Date Parth Taylor MD [address] [place] [address] PCP - General Internal Medicine 03/14/25 documented as of this encounter
--- OUTSIDE RECORDS SUMMARY | 2025-05-27 12:55 | XMS_ITS | Encounter Summary ---
Author Organization [facility] Address [address] [place] [address] Care Team Providers Care Professor Of Food Biochemistry Name Role Phone Parth Taylor MD Primary Care Provider [phone] Encounter Details Date Type Department Care Team ([facility] st Contact Info) Description 05/25/2021 Orders Only External Location [address] [place] [address] Provider, External Social History Tobacco Use Types Packs/Day Years Used Date Smoking Tobacco: Never Alcohol Use Standard Drinks/Week Comments No 0 (1 standard drink = 0.6 oz pure alcohol) Alcoholic Drinks/day: Denies alcohol consumption Comments Unknown Sex and Gender Information Value Date Recorded Sex Assigned at Not on file Legal Sex Female 8:36 PM EDT Gender Identity Not on file Sexual Orientation Not on file documented as of this encounter Plan of Treatment Not on file documented as of this encounter Procedures Procedure Name Priority Date/Time Associated Diagnosis Comments MAMMOGRAPHY OUTSIDE IMAGES UPLOAD 05/25/2021 2:00 PM EDT documented in this encounter Results * Mammography Outside Images Upload (05/25/2021 2:00 PM EDT) Anatomical Region Laterality Modality Mammography 05/25/2021 2:00 PM EDT us External Provider IMG BI PROCEDURES Final Result documented in this encounter Visit Diagnoses Not on filedocumented in this encounter Care Teams Professor Of Food Biochemistry Relationship Specialty Start Date End Date Parth Taylor MD [address] [place] [address] PCP - General Internal Medicine 03/14/25 documented as of this encounter
--- OUTSIDE RECORDS SUMMARY | 2025-05-27 12:55 | XMS_ITS | Encounter Summary ---
Author Organization [facility] Address [address] [place] [address] Care Team Providers Care Auditor/Quality Name Role Phone Parth Taylor MD Primary Care Provider [phone] Encounter Details Date Type Department Care Team (Late st Contact Info) Description 07/10/2010 Orders Only External Location [address] [place] [address] Sesar Lawton MD [address] [facility] [address] [place] [address] Social History Tobacco Use Types Packs/Day Years [...] Associated Diagnosis Comments MAMMOGRAPHY OUTSIDE IMAGES UPLOAD 07/10/2010 11:14 AM EDT documented in this encounter Results * Mammography Outside Images Upload (07/10/2010 11:14 AM EDT) Anatomical Region Laterality Modality Mammography 07/10/2010 11:1 4 AM EDT us Sesar Lawton MD IMG BI PROCEDURES Final Result documented in this encounter Visit Diagnoses Not on filedocumented in this encounter Care Teams Auditor/Quality Relationship Specialty Start Date End Date Parth Taylor MD [address] [place] [address] PCP - General Internal Medicine 03/14/25 documented as of this encounter
--- OUTSIDE RECORDS SUMMARY | 2025-05-27 12:55 | XMS_ITS | Encounter Summary ---
Author Organization [facility] Address [address] [place] [address] Care Team Providers Care Plant Operations Engineer Name Role Phone Parth Taylor MD Primary Care Provider + [phone] Encounter Details Date Type Department Care Team (Late st Contact Info) Description 10/11/2022 Orders Only External Location [address] [place] [address] Campbell Browning MD [address] [place] [address] Social History Tobacco Use Types Packs/Day Years [...] Procedure Name Priority Date/Time Associated Diagnosis Comments US BREAST OUTSIDE IMAGES 10/11/2022 2:03 PM EST documented in this encounter Results * US BREAST OUTSIDE IMAGES (10/11/2022 2:03 PM EST) Anatomical Region Laterality Modality Breast Mammography 10/11/2022 2:03 PM EST us Campbell Browning MD IMG BI PROCEDURES Final Result documented in this encounter Visit Diagnoses Not on filedocumented in this encounter Care Teams Plant Operations Engineer Relationship Specialty Start Date End Date Parth Taylor MD [address] [place] [address] PCP - General Internal Medicine 03/14/25 documented as of this encounter
--- OUTSIDE RECORDS SUMMARY | 2025-05-27 12:55 | XMS_ITS | Encounter Summary ---
Author Organization [facility] Address [address] [place] [address] Care Team Providers Care Box Office Manager Name Role Phone Parth Taylor MD Primary Care Provider + [phone] Encounter Details Date Type Department Care Team (Late st Contact Info) Description 09/06/2022 Orders Only External Location [address] [place] [address] Campbell Browning MD [address] [place] [address] Social History Tobacco Use Types [...] Associated Diagnosis Comments MAMMOGRAPHY OUTSIDE IMAGES UPLOAD 09/06/2022 4:13 PM EST documented in this encounter Results * Mammography Outside Images Upload (09/06/2022 4:13 PM EST) Anatomical Region Laterality Modality Mammography 09/06/2022 4:13 PM EST us Campbell Browning MD IMG BI PROCEDURES Final Result documented in this encounter Visit Diagnoses Not on filedocumented in this encounter Care Teams Box Office Manager Relationship Specialty Start Date End Date Parth Taylor MD [address] [place] [address] PCP - General Internal Medicine 03/14/25 documented as of this encounter
--- OUTSIDE RECORDS SUMMARY | 2025-05-27 12:55 | XMS_ITS | Encounter Summary ---
Author Organization [facility] Address [address] [place] [address] Care Team Providers Care Windows Vmware Administrator Name Role Phone Parth Taylor MD Primary Care Provider + [phone] Encounter Details Date Type Department Care Team (Late st Contact Info) Description 08/05/2015 Orders Only External Location [address] [place] [address] Provider, External Social History Tobacco Use Types [...] Associated Diagnosis Comments MAMMOGRAPHY OUTSIDE IMAGES UPLOAD 08/05/2015 9:25 AM EDT documented in this encounter Results * Mammography Outside Images Upload (08/05/2015 9:25 AM EDT) Anatomical Region Laterality Modality Mammography 08/05/2015 9:25 AM EDT us External Provider IMG BI PROCEDURES Final Result documented in this encounter Visit Diagnoses Not on filedocumented in this encounter Care Teams Windows Vmware Administrator Relationship Specialty Start Date End Date Parth Taylor MD [address] [place] [address] PCP - General Internal Medicine 03/14/25 documented as of this encounter
--- OUTSIDE RECORDS SUMMARY | 2025-05-27 12:55 | XMS_ITS | Clinical Summary ---
Author Organization [facility] Address [address] [place] [id number] Care Team Providers Care Sheet Rock Taper Name Role Phone Parth Taylor MD Primary Care Provider [phone] Encounters Date Type Department Care Team Description 03/14/2025 3:05 PM EDT - 03/14/2025 11:59 PM EDT Hospital Encounter [facility] [address] [phone] Encounter for screening mammogram for malignant neoplasm of breast Discharge Disposition: Home or Self Care 03/14/2025 Travel from Last 3 Months Family History Medical History Relation Name Comments Heart attack Brother Heart attack Father Respiratory Disorder Father Relation Name Status Comments Brother Father Social History Tobacco Use Types Packs/Day Years Used Date Smoking Tobacco: Never Smokeless Tobacco: Never Tobacco Cessation:Counseling Given: Not Answered Alcohol Use Standard Drinks/Week Comments No 0 (1 standard drink = 0.6 oz pure alcohol) Alcoholic Drinks/day: Denies alcohol consumption Comments No Sex and Gender Information Value Date Recorded Sex Assigned at Not on file Legal Sex Female 8:36 PM EDT Gender Identity Not on file Sexual Orientation Not on file Last Filed Vital Signs Vital Sign Reading Time Taken Comments Blood Pressure 173/87 02/06/2019 3:22 PM EDT Pulse 74 02/06/2019 3:22 PM EDT Temperature 36.6 C (97.9 F) 02/06/2019 3:22 PM EDT Respiratory Rate 20 02/06/2019 3:22 PM EDT Oxygen Saturation - - Inhaled Oxygen Concentration - - Weight 83.9 kg (185 lb) 03/14/2025 3:41 PM EDT Height 160 cm (5' 3 ) 03/14/2025 3:41 PM EDT Body Mass Index 32.77 03/14/2025 3:41 PM EDT Plan of Treatment Health Maintenance Due Date Last Done Comments [facility]-Bone Density Scan 1940 [facility]-Depression Screening 1940 [facility]-Medicare Annual Wellness (AWV) 1940 [facility]-/Child/Adol SDOH Screenings 1940 [facility]-Obesity Intervention 1947 [facility]- SDOH Screenings 1959 [facility]-Adult SDOH Screenings 1959 [facility]-DTaP,Tdap,and Td Vaccines (1 - Tdap) 1960 [facility]-Pneumococcal Vaccine: 50+ Years (1 of 1 - PCV) 1991 [facility]-Zoster Vaccines (1 of 2) 1991 [facility]-RSV Vaccine: 60+ Years or (1 - 1-dose 75+ series) 2016 [id number] Vaccine ( season) 2024 02/09/2022, 07/16/2021, 12/03/2020, Additional history exists [facility]-Influenza Vaccine (#1) 07/01/202508/15, 08/23/2022, 09/03/2018, Additional history exists HPV Vaccines Aged Out No longer eligi ble based on patient's age to complete this topic [facility]-HIB Vaccines Aged Out No longer e ligible based on patient's age to complete this topic [facility]-Hepatitis A Vaccines Aged Out No longer eligible based on patient's age to complete this topic [facility]-IPV Vaccines Aged Out No longer e ligible based on patient's age to complete this topic [facility]-Rotavirus Vaccines Aged Out No lo nger eligible based on patient's age to complete this topic Procedures Procedure Name Priority Date/Time Associated Diagnosis Comments MAMMOGRAPHY BREAST SCREENING TOMOSYNTHESIS BILATERAL Routine 03/14/2025 3:56 PM EDT Encounter for screening mammogram for malignant neoplasm of breast from Last 3 Months Results * Mammography Breast Screening Tomosynthesis Bilateral (03/14/2025 3:56 PM EDT) Anatomical Region Laterality Modality Breast Bilateral Mammography Impressions 03/16/2025 11:04 AM EDT No mammographic evidence of malignancy. BI-RADS CATEGORY: Overall: 2 - Benign RECOMMENDATION: - Routine Screening Mammogram in 1 Year. Patient Lifetime Risk Score of Breast Malignancy: A risk score has not been calculated for this patient. This risk assessment is calculated using the Brittany Risk Assessment model which may underestimate the lifetime risk of breast malignancy. COMMUNICATION: Computer-aided detection (CAD) and tomosynthesis were utilized by the radiologist in the interpretation of this examination. The results and recommendations will be sent to the patient in a printed lay language version of the imaging report. Narrative 03/16/2025 11:04 AM EDT EXAM: Mammography Breast Screening with Tomosynthesis REASON FOR EXAM: Screening Mammogram HISTORY: Patient is 84 y.o. Surgical and procedural history include lumpectomy (lumpectomy from [email or web address]); breast surgery (Breast Surgery from [email or web address]); breast surgery (lumpectomy from [email or web address]); and breast lumpectomy (lumpectomy from [email or web address]). COMPARISON STUDIES: Compared to: 05/25/2021 Mammography Outside Images Upload 09/06/2022 Mammography Outside Images Upload 11/02/2022 MR Breast Bilateral w and wo IV Contrast at [facility] 12/27/2023 Mammography Breast Screening Tomosynthesis Bilateral at [facility] BREAST COMPOSITION: There are scattered areas of fibroglandular density. FINDINGS: There are post-lumpectomy changes present in the left breast with persistent left breast skin thickening and edema. There is no evidence of suspicious masses, calcifications, or other abnormal findings. Eleni Calderon APRN IMG BI PROCEDURES Final Re sult from Last 3 Months Insurance [facility] MEDICARE Care Teams Sheet Rock Taper Relationship Specialty Start Date End Date Parth Taylor MD [address] [place] [address] PCP - General Internal Medicine 03/14/25
--- OUTSIDE RECORDS SUMMARY | 2025-05-27 12:55 | XMS_ITS | Encounter Summary ---
Author Organization [facility] Address [address] [place] [address] Care Team Providers Care Mud Analysis Operator Name Role Phone Aristeo Hoyt MD Primary Care Provider Encounter Details Date Type Department Care Team (Late st Contact Info) Description 07/24/2012 Conversion Encounter [facility] HISTORICAL CONV [address] [place] [address] Interface, See Report Social History Tobacco Use Types Packs/Day Years Used Date Smoking Tobacco: Never Assessed Comments Unknown Sex and Gender Information Value Date Recorded Sex Assigned at Not on file Legal Sex Female 11:31 AM EDT Gender Identity Not on file Sexual Orientation Not on file documented as of this encounter H&P Notes * Interface, See Report - 07/24/2012 1:56 PM EDT Carlos Sesay M.D. ' Phi Garvey M.D. ' Jacinto Vasquez M.D. ' TREE Sotelo M.D. ' Tomas Hardy M.D. ' Ross Harmon APRN [facility], [address] [place] [address] [facility] [employer] OFFICE NOTE AMENA DAVID : 1940 DATE OF VISIT: 07/24/2012 CHIEF COMPLAINT: 1. 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 SUBJECTIVELY: Amena has the usual arthritic aches and pains of life. Particularly in the knees. These are rather persistent and worse when she first gets up and going and then when she stands for a long period of time, makes it worse yet again. She denies any lumps or bumps in her breasts. REVIEW OF SYSTEMS: Negative for any other ENT, ocular, pulmonologic, gastrointestinal, genitourinary, musculoskeletal, neurologic, integumentary, immunologic or psychiatric complaints. SOCIAL HISTORY: Unchanged from 07/20/2011. PHYSICAL EXAMINATION: VITAL SIGNS: Reveals blood pressure of 158/74, respirations 20 and regular. Pulse 87 and regular. Temperature 98.8. Her weight is stable. LUNGS: Clear to auscultation. HEART: Regular rate and rhythm without murmur, gallop or rub. ABDOMEN: Protuberant with no organomegaly, mass or tenderness. EXTREMITIES: Reveal no cyanosis, clubbing, edema, or cords. NEUROLOGIC: No focal motor or sensory deficits. BREASTS: Bilateral breast examination is benign. DATA: Mammogram of is BI-RADS II bilaterally. AMENA DAVID : 1940 DATE OF VISIT: 07/24/2012 ASSESSMENT AND PLAN: 1. Breast cancer: We will continue to monitor her annually for extended follow-up but she is off of hormonal therapy. She is now 12 years out. We will see her back in a year with mammogram prior to return as well as lab work just prior to return. Jacinto Vasquez M.D.* LH/rxdrs Doc. ID [id number] Rev. #0 cc: Cheyenne Parson M.D.* Parth Taylor M.D.* Page 2 of 2 Page 1 of 2 Authenticated by JACINTO VASQUEZ M.D. On 07/28/2012 08:21:16 AM * Interface, See Report - 07/24/2012 1:56 PM EDT Carlos Sesay M.D. ' Phi Garvey M.D. ' Jacinto Vasquez M.D. ' TREE Sotelo M.D. ' Isra Hewitt M.D. ' Tomas Hardy M.D. ' Ross Harmon APRN [address] [place] [address] [place] [address] [employer] OFFICE NOTE AMENA DAVID : 1940 DATE OF VISIT: 07/23/2013 CHIEF COMPLAINT: Breast cancer. PROBLEM LIST: 1. History of [id number], 1.3 cm primary, hormone receptor positive breast cancer. Status post CMF adjuvantly followed by five years of tamoxifen and then five years of Femara ending January 2010. Original diagnosis 12/2009. DATA: 07/2013 bilateral mammogram BI-RADS II (per phone report from the hospital). SUBJECTIVE: Amena states that other than for her asthma and breathing she has been doing well since we saw her last. She denies any abnormal findings on breast self exam or concerns. She has had no unusual aches or pains. REVIEW OF SYSTEMS: Negative for any other ENT, ocular, pulmonologic, gastrointestinal, genitourinary, musculoskeletal, neurologic, immunologic or psychiatric complaints. SOCIAL HISTORY: Unchanged. Amena is and has a supportive . He has just recently undergone back surgery and she is helping him to recover from this. She does not smoke or drink. She is a retired teacher. MEDICATIONS: Medication reconciliation for the patient has been reviewed and confirmed in EMR. PHYSICAL EXAMINATION: GENERAL: Reveals Amena to be very pleasant and in no obvious distress. VITAL SIGNS: Her weight is stable at 243 pounds. Blood pressure is 140/71. Heart rate 76. Respirations 16 and unlabored. Temperature is 98. HEENT: Normocephalic. Sclerae anicteric. Oral mucosa is moist without lesions. NECK: Supple with no lymphadenopathy. LUNGS: Clear to auscultation bilaterally. HEART: Regular rate and rhythm. No murmur, gallop or rub. BREASTS: Breast exam reveals bilateral pendulous breasts, left breast is slightly smaller than the right. Right breast tissue is soft with no abnormal masses or nodules. Skin is without dimpling. Nipple is without retraction or discharge. Left breast reveals stable lumpectomy scar bed. No abnormal masses or nodules. Skin is without dimpling. Nipple is without retraction or discharge. Axillary exam is benign bilaterally. ABDOMEN: Obese, soft and nontender. EXTREMITIES: No cyanosis, clubbing, edema, or cords. NEUROLOGIC: No focal motor or sensory deficits. LYMPH: Nodes are all nonpalpable. ASSESSMENT AND PLAN: 1. History of left breast cancer, status post adjuvant CMF followed by five years of tamoxifen and then five years of Femara ending January 2010: Amena continues to be without evidence of disease on physical exam. Her recent mammogram from last week was negative although I do not have the written report of this, I was given a verbal report of this on the phone from [facility] Radiology Department. We will have her follow-up with us in one year with mammogram prior to return. Ross Harmon APRN* /rxalshon Doc. ID [id number] Rev. #0 cc: Aristeo Hoyt Jr., M.D.* Cheyenne Parson M.D.* AMENA DAVID : 1940 DATE OF VISIT: 07/23/2013 Page 2 of 2 Page 1 of 2 DOCUMENT CODE :[facility]: PHYSICIAN CODE :383: Authenticated and Edited by ROSS HARMON APRN On 07/25/13 11:19:20 AM documented in this encounter Plan of Treatment Upcoming Encounters Date Type Department Care Team (Late st Contact Info) Description 07/25/2025 2:45 PM EDT Office Visit [facility] [place] [address] [place] [address] [place] [address] Julio Costello MD [address] [facility] [address] [place] [address] documented as of this encounter Visit Diagnoses Not on filedocumented in this encounter Care Teams Mud Analysis Operator Relationship Specialty Start Date End Date Aristeo Hoyt MD [address] [facility] [address] [place] [address] PCP - General Internal Medicine 05/30/18 documented as of this encounter
--- OUTSIDE RECORDS SUMMARY | 2025-05-27 12:55 | XMS_ITS | Encounter Summary ---
Author Organization [facility] Address [address] [place] [address] Care Team Providers Care Environmental Conflict Manager Name Role Phone Parth Taylor MD Primary Care Provider [phone] Encounter Details Date Type Department Care Team (Late st Contact Info) Description 02/01/2020 Orders Only External Location [address] [place] [address] Provider, External Social History Tobacco Use Types [...] Associated Diagnosis Comments MAMMOGRAPHY OUTSIDE IMAGES UPLOAD 02/01/2020 10:25 AM EDT documented in this encounter Results * Mammography Outside Images Upload (02/01/2020 10:25 AM EDT) Anatomical Region Laterality Modality Mammography 02/01/2020 10:2 5 AM EDT us External Provider IMG BI PROCEDURES Final Result documented in this encounter Visit Diagnoses Not on filedocumented in this encounter Care Teams Environmental Conflict Manager Relationship Specialty Start Date End Date Parth Taylor MD [address] [place] [address] PCP - General Internal Medicine 03/14/25 documented as of this encounter
--- OUTSIDE RECORDS SUMMARY | 2025-05-27 12:55 | XMS_ITS | Encounter Summary ---
Author Organization [facility] Address [address] [place] [address] Care Team Providers Care Siebel Developer Name Role Phone Parth Taylor MD Primary Care Provider + [phone] Encounter Details Date Type Department Care Team (Late st Contact Info) Description 07/07/2011 Orders Only External Location [address] [place] [address] Sesar Lawton MD [address] [facility] [address] [place] [address] Social History Tobacco Use Types Packs/Day Years [...] Associated Diagnosis Comments MAMMOGRAPHY OUTSIDE IMAGES UPLOAD 07/07/2011 3:01 PM EDT documented in this encounter Results * Mammography Outside Images Upload (07/07/2011 3:01 PM EDT) Anatomical Region Laterality Modality Mammography 07/07/2011 3:01 PM EDT us Sesar Lawton MD IMG BI PROCEDURES Final Result documented in this encounter Visit Diagnoses Not on filedocumented in this encounter Care Teams Siebel Developer Relationship Specialty Start Date End Date Parth Taylor MD [address] [place] [address] PCP - General Internal Medicine 03/14/25 documented as of this encounter
--- OUTSIDE RECORDS SUMMARY | 2025-05-27 12:55 | XMS_ITS | Encounter Summary ---
Author Organization [facility] Address [address] [place] [address] Care Team Providers Care Environmental Permitting Specialist Name Role Phone Parth Taylor MD Primary Care Provider + [phone] Encounter Details Date Type Department Care Team (Late st Contact Info) Description 10/07/2017 Orders Only External Location [address] [place] [address] Provider, External Social History Tobacco Use Types [...] Associated Diagnosis Comments MAMMOGRAPHY OUTSIDE IMAGES UPLOAD 10/07/2017 4:05 PM EST documented in this encounter Results * Mammography Outside Images Upload (10/07/2017 4:05 PM EST) Anatomical Region Laterality Modality Mammography 10/07/2017 4:05 PM EST us External Provider IMG BI PROCEDURES Final Result documented in this encounter Visit Diagnoses Not on filedocumented in this encounter Care Teams Environmental Permitting Specialist Relationship Specialty Start Date End Date Parth Taylor MD [address] [place] [address] PCP - General Internal Medicine 03/14/25 documented as of this encounter
--- OUTSIDE RECORDS SUMMARY | 2025-05-27 12:55 | XMS_ITS | Encounter Summary ---
Author Organization [facility] Address [address] [place] [address] Care Team Providers Care Side Door Worker Name Role Phone Parth Taylor MD Primary Care Provider [phone] Encounter Details Date Type Department Care Team (Late st Contact Info) Description 07/17/2014 Orders Only External Location [address] [place] [address] Provider, External Social History Tobacco Use Types [...] Associated Diagnosis Comments MAMMOGRAPHY OUTSIDE IMAGES UPLOAD 07/17/2014 2:26 PM EDT documented in this encounter Results * Mammography Outside Images Upload (07/17/2014 2:26 PM EDT) Anatomical Region Laterality Modality Mammography 07/17/2014 2:26 PM EDT us External Provider IMG BI PROCEDURES Final Result documented in this encounter Visit Diagnoses Not on filedocumented in this encounter Care Teams Side Door Worker Relationship Specialty Start Date End Date Parth Taylor MD [address] [place] [address] PCP - General Internal Medicine 03/14/25 documented as of this encounter
--- OUTSIDE RECORDS SUMMARY | 2025-05-27 12:55 | XMS_ITS | Encounter Summary ---
Author Organization [facility] Address [address] [place] [address] Care Team Providers Care Licensed Occupational Therapist Name Role Phone Parth Taylor MD Primary Care Provider [phone] Encounter Details Date Type Department Care Team (Late st Contact Info) Description 11/16/2018 Orders Only External Location [address] [place] [address] Provider, External Social History Tobacco Use Types [...] Associated Diagnosis Comments MAMMOGRAPHY OUTSIDE IMAGES UPLOAD 11/16/2018 10:49 AM EST documented in this encounter Results * Mammography Outside Images Upload (11/16/2018 10:49 AM EST) Anatomical Region Laterality Modality Mammography 11/16/2018 10:4 9 AM EST us External Provider IMG BI PROCEDURES Final Result documented in this encounter Visit Diagnoses Not on filedocumented in this encounter Care Teams Licensed Occupational Therapist Relationship Specialty Start Date End Date Parth Taylor MD [address] [place], [place] [address] PCP - General Internal Medicine 03/14/25 documented as of this encounter
--- OUTSIDE RECORDS SUMMARY | 2025-05-27 12:55 | XMS_ITS | Encounter Summary ---
Author Organization [facility] Address [address] [place] [address] Care Team Providers Care Screw Machine Operator Swiss Type Name Role Phone Parth Taylor MD Primary Care Provider [phone] Encounter Details Date Type Department Care Team (Late st Contact Info) Description 07/16/2013 Orders Only External Location [address] [place] [address] Sesar Lawton MD [address] [facility] [address] [place] [address] Social History Tobacco Use Types Packs/Day Years [...] Associated Diagnosis Comments MAMMOGRAPHY OUTSIDE IMAGES UPLOAD 07/16/2013 3:25 PM EDT documented in this encounter Results * Mammography Outside Images Upload (07/16/2013 3:25 PM EDT) Anatomical Region Laterality Modality Mammography 07/16/2013 3:25 PM EDT us Sesar Lawton MD IMG BI PROCEDURES Final Result documented in this encounter Visit Diagnoses Not on filedocumented in this encounter Care Teams Screw Machine Operator Swiss Type Relationship Specialty Start Date End Date Parth Taylor MD [address] [place] [address] PCP - General Internal Medicine 03/14/25 documented as of this encounter
--- OUTSIDE RECORDS SUMMARY | 2025-05-27 12:55 | XMS_ITS | Encounter Summary ---
Author Organization Healthcare Address [address] [place] [address] Care Team Providers Care Emergency Department Coordinator Name Role Phone Parth Taylor MD Primary Care Provider [phone] Encounter Details Date Type Department Care Team ([facility] st Contact Info) Description 11/21/2020 Orders Only External Location [address] [place] [address] Provider, External Social History Tobacco Use Types [...] Associated Diagnosis Comments MAMMOGRAPHY OUTSIDE IMAGES UPLOAD 11/21/2020 1:46 PM EST documented in this encounter Results * Mammography Outside Images Upload (11/21/2020 1:46 PM EST) Anatomical Region Laterality Modality Mammography 11/21/2020 1:46 PM EST us External Provider IMG BI PROCEDURES Final Result documented in this encounter Visit Diagnoses Not on filedocumented in this encounter Care Teams Emergency Department Coordinator Relationship Specialty Start Date End Date Parth Taylor MD [address] [place] [address] PCP - General Internal Medicine 03/14/25 documented as of this encounter
--- OUTSIDE RECORDS SUMMARY | 2025-05-27 12:56 | XMS_ITS | Encounter Summary ---
Author Organization [facility] Address [address] [place] [address] Care Team Providers Care Nuclear Reactor Technician Name Role Phone Parth Taylor MD Primary Care Provider [phone] Encounter Details Date Type Department Care Team (Late st Contact Info) Description 07/11/2012 Orders Only External Location [address] [place] [address] Sesar Lawton MD [address] [facility] [address] [place] [address] Social History Tobacco Use Types Packs/Day Years [...] Associated Diagnosis Comments MAMMOGRAPHY OUTSIDE IMAGES UPLOAD 07/11/2012 1:08 PM EDT documented in this encounter Results * Mammography Outside Images Upload (07/11/2012 1:08 PM EDT) Anatomical Region Laterality Modality Mammography 07/11/2012 1:08 PM EDT us Sesar Lawton MD IMG BI PROCEDURES Final Result documented in this encounter Visit Diagnoses Not on filedocumented in this encounter Care Teams Nuclear Reactor Technician Relationship Specialty Start Date End Date Parth Taylor MD [address] [place] [address] PCP - General Internal Medicine 03/14/25 documented as of this encounter
--- NOTE | 2025-05-27 13:23 | XR_ITS ---
FINAL REPORT CLINICAL HISTORY: pain, bruising and swelling FINDINGS: AP, oblique and lateral views of the left foot were obtained. There is no acute fracture or dislocation. The joint spaces are preserved. There is soft tissue edema that is worse in the hindfoot. There is osteopenia. IMPRESSION: Soft tissue edema without acute osseous abnormality. Reviewed, Interpreted and Dictated by Aster Winchester MD Transcribed by CHIDI Vega Authenticated and . [facility]
--- NOTE | 2025-05-27 13:23 | XR_ITS ---
FINAL REPORT CLINICAL HISTORY: PAIN, bruising and swelling FINDINGS: AP, oblique, and lateral views of the left ankle were obtained. There is no fracture or dislocation. The ankle mortise is intact. There is osteopenia. There is diffuse soft tissue edema. IMPRESSION: Soft tissue edema without acute osseous abnormality. Reviewed, Interpreted and Dictated by Aster Winchester MD Transcribed by CHIDI Vega Authenticated and [facility]
== END 2025-05-27 23:59 | disposition home or self-care (01) ==
LOC: RAD 12:50
PROVIDERS: PCP Internal Medicine Adolescent Medicine; Visit Provider Internal Medicine Adolescent Medicine
DX: M79.89 Other specified soft tissue disorders (principal); G89.11 Acute pain due to trauma
CPT/HCPCS: 73610; 73630